=== PATIENT | female | born 1955 | race Caucasian/White ===

== ENCOUNTER 2019-09-11 10:41 | Outpatient (CLI) | payer MEDICARE, SELFPAY ==
[2019-09-11 11:15] LABS: Basophils % 0.8 %; Eosinophils # 0.2 10^3/uL (0.0-0.8); Eosinophils % 5.8 %; Hematocrit 41.8 % (37.0-47.0); Hemoglobin 14.1 g/dL (11.5-15.3); Lymphocytes # 1.3 10^3/uL (0.8-4.8); Lymphocytes % 32.3 %; Mean Corpuscular HGB Conc 33.7 g/dL (30.0-36.0); Mean Corpuscular Hemoglobin 33.6 pg (28.0-34.0); Mean Corpuscular Volume 99.5 fL (81-99); Mean Platelet Volume 9.2 fL (7.4-10.4); Monocytes # 0.5 10^3/uL (0.2-0.9); Monocytes % 12.8 %; Neutrophils # 1.9 10^3/uL (1.8-7.7); Nucleated Red Blood Cells % 0 %; Platelet Count 212 10^3/cmm (130-400)
[2019-09-11 11:31] LABS: Alanine Aminotransferase 27 U/L (0-33); Albumin Level 4.5 g/dL (3.5-5.2); Alkaline Phosphatase 64 IU/L (35-105); Anion Gap 13.4 (5-19); Aspartate Amino Transferase 24 U/L (0-32); Blood Urea Nitrogen 19 mg/dL (8-23); Calcium 10.4 mg/dL (8.5-10.5); Carbon Dioxide 27 mmol/L (22-29); Chloride 102 mmol/L (98-107); Chol HDL Ratio 7.13 mg/dL (0.0-4.40); Cholesterol 285 mg/dL (0-200); Globulin 2.8 g/dL (1.3-4.6); Glomerular Filtration Rate 71.8 mL/min (90-130); Glucose 105 mg/dL (65-115); HDL Cholesterol 40 mg/dL (60-100); LDL Cholesterol Calculated 201 mg/dL (50-129); LDL HDL Ratio 5.03 RATIO (0.00-3.22); Potassium 4.4 mmol/L (3.5-5.1); Sodium 138 mmol/L (136-145); Total Bilirubin 0.4 mg/dL (0.15-1.2); Total Protein 7.3 g/dL (6.6-8.7); Triglycerides 219 mg/dL (0-150)
== END 2019-09-11 10:42 | disposition home or self-care (01) ==
LOC: LAB 10:44
PROVIDERS: Family Provider Internal Medicine; PCP Internal Medicine; Visit Provider Internal Medicine
DX: I10 Essential (primary) hypertension (principal); E03.9 Hypothyroidism, unspecified; Z13.220 Encounter for screening for lipoid disorders
CPT/HCPCS: 36415; 80053; 80061; 85025

== ENCOUNTER 2020-01-05 11:03 | Outpatient (CLI) | payer MEDICARE, SELFPAY ==
[2020-01-05 12:01] LABS: Basophils # 0.1 10^3/uL (0.0-0.1); Basophils % 1.1 %; Eosinophils # 0.2 10^3/uL (0.0-0.8); Eosinophils % 4.1 %; Hematocrit 42.1 % (37.0-47.0); Hemoglobin 14.1 g/dL (11.5-15.3); Lymphocytes # 1.5 10^3/uL (0.8-4.8); Lymphocytes % 32.3 %; Mean Corpuscular HGB Conc 33.5 g/dL (30.0-36.0); Mean Corpuscular Hemoglobin 32.6 pg (28.0-34.0); Mean Corpuscular Volume 97.5 fL (81-99); Mean Platelet Volume 9.8 fL (7.4-10.4); Monocytes # 0.5 10^3/uL (0.2-0.9); Monocytes % 11.3 %; Neutrophils # 2.4 10^3/uL (1.8-7.7); Nucleated Red Blood Cells % 0 %; Platelet Count 212 10^3/cmm (130-400); Red Blood Count 4.32 10^6/uL (4.1-5.3); White Blood Count 4.6 10^3/uL (4.0-10.0)
[2020-01-05 13:15] LABS: Alanine Aminotransferase 24 U/L (0-33); Albumin Level 4.5 g/dL (3.5-5.2); Alkaline Phosphatase 71 IU/L (35-105); Anion Gap 14.4 (5-19); Aspartate Amino Transferase 26 U/L (0-32); Blood Urea Nitrogen 16 mg/dL (8-23); Calcium 10.7 mg/dL (8.5-10.5); Carbon Dioxide 27 mmol/L (22-29); Chloride 103 mmol/L (98-107); Chol HDL Ratio 2.72 mg/dL (0.0-4.40); Cholesterol 136 mg/dL (0-200); Globulin 3.1 g/dL (1.3-4.6); Glomerular Filtration Rate 83.7 mL/min (90-130); Glucose 106 mg/dL (65-115); HDL Cholesterol 50 mg/dL (60-100); LDL Cholesterol Calculated 65 mg/dL (50-129); Osmolality Calculated 287 mOsm/kg (285-295); Potassium 4.4 mmol/L (3.5-5.1); Sodium 140 mmol/L (136-145); Thyroid Stimulating Hormone 1.57 uIU/mL (0.27-4.20); Total Bilirubin 0.5 mg/dL (0.15-1.2); Total Protein 7.6 g/dL (6.6-8.7); Triglycerides 107 mg/dL (0-150)
== END 2020-01-05 11:04 | disposition home or self-care (01) ==
LOC: LAB 11:08
PROVIDERS: PCP Internal Medicine; Visit Provider Internal Medicine
DX: I10 Essential (primary) hypertension (principal); E03.9 Hypothyroidism, unspecified; E78.2 Mixed hyperlipidemia
CPT/HCPCS: 36415; 80053; 80061; 84443; 85025

== ENCOUNTER 2020-05-12 09:45 | Outpatient (CLI) | payer MEDICARE, SELFPAY ==
[2020-05-12 10:43] LABS: Basophils % 0.8 %; Eosinophils # 0.2 10^3/uL (0.0-0.8); Eosinophils % 3.7 %; Hematocrit 41.6 % (37.0-47.0); Hemoglobin 13.3 g/dL (11.5-15.3); Lymphocytes # 1.4 10^3/uL (0.8-4.8); Lymphocytes % 27.7 %; Mean Corpuscular Hemoglobin 31.4 pg (28.0-34.0); Mean Corpuscular Volume 98.3 fL (81-99); Mean Platelet Volume 9.5 fL (7.4-10.4); Monocytes # 0.5 10^3/uL (0.2-0.9); Neutrophils # 2.98 10^3/uL (1.8-7.7); Neutrophils % 58.6 %; Nucleated Red Blood Cells % 0 %; Platelet Count 217 10^3/cmm (130-400); Red Blood Count 4.23 10^6/uL (4.1-5.3); White Blood Count 5.1 10^3/uL (4.0-10.0)
[2020-05-12 11:22] LABS: Alanine Aminotransferase 21 U/L (0-33); Albumin Level 4.6 g/dL (3.5-5.2); Alkaline Phosphatase 70 IU/L (35-105); Anion Gap 13.4 (5-19); Aspartate Amino Transferase 23 U/L (0-32); Blood Urea Nitrogen 19 mg/dL (8-23); Calcium 9.9 mg/dL (8.5-10.5); Carbon Dioxide 28 mmol/L (22-29); Chloride 103 mmol/L (98-107); Chol HDL Ratio 3.02 mg/dL (0.0-4.40); Cholesterol 160 mg/dL (0-200); Globulin 2.6 g/dL (1.3-4.6); Glomerular Filtration Rate 99.7 mL/min (90-130); Glucose 106 mg/dL (65-115); HDL Cholesterol 53 mg/dL (60-100); LDL Cholesterol Calculated 82 mg/dL (50-129); LDL HDL Ratio 1.55 RATIO (0.00-3.22); Osmolality Calculated 293 mOsm/kg (285-295); Potassium 4.4 mmol/L (3.5-5.1); Sodium 140 mmol/L (136-145); Thyroid Stimulating Hormone 1.32 uIU/mL (0.27-4.20); Total Bilirubin 0.4 mg/dL (0.15-1.2); Total Protein 7.2 g/dL (6.6-8.7); Triglycerides 125 mg/dL (0-150)
== END 2020-05-12 09:46 | disposition home or self-care (01) ==
LOC: LAB 09:47
PROVIDERS: PCP Internal Medicine; Visit Provider Internal Medicine
DX: E78.5 Hyperlipidemia, unspecified (principal); E03.9 Hypothyroidism, unspecified; I10 Essential (primary) hypertension
CPT/HCPCS: 36415; 80053; 80061; 84443; 85025

== ENCOUNTER → 2020-06-16 13:03 | Outpatient (BNVA) | payer MEDICARE, SELFPAY | PROVIDERS: PCP Internal Medicine; Visit Provider Internal Medicine | DX: Z20.828 Contact with and (suspected) exposure to other viral communicable diseases (principal); Z01.812 Encounter for preprocedural laboratory examination | CPT/HCPCS: 87635 ==

== ENCOUNTER 2020-06-20 11:08 | Outpatient (CLI) | payer MEDICARE, SELFPAY ==
--- NOTE | 2020-06-20 14:24 | PFTS_ITS ---
Date of Study:06/20/20 Date of Dictation: 06/22/20 MECHANICS: Forced vital capacity (FVC) is 107% Normal Forced expiratory volume in one second (FEV1) is 114% normal FEV1/FVC is 83 nornal FLOW VOLUME LOOP: normal . LUNG VOLUMES:not measured DIFFUSING CAPACITY FOR CARBON MONOXIDE: not measured . INTERPRETATION: The spirometry is normal. MTDD
== END 2020-06-20 11:09 | disposition home or self-care (01) ==
LOC: RT 11:17
PROVIDERS: PCP Internal Medicine; Visit Provider Internal Medicine
DX: J44.9 Chronic obstructive pulmonary disease, unspecified (principal)
CPT/HCPCS: 94010

== ENCOUNTER 2020-07-07 12:08 | Outpatient (CLI) | payer MEDICARE, SELFPAY ==
[2020-07-08 16:43] LABS: Alternaria Alternata (M6) Ige <0.10 kU/L; Alternaria Class 0; Bermuda Class 0; Bermuda Grass (G2) Ige <0.10 kU/L; Cat Dander (E1) Ige <0.10 kU/L; Cat Dander Class 0; Common Ragweed (Short) (W1) Ig <0.10 kU/L; D. Farinae Class 0/1; Dermatophagoides Class 1; Dermatophagoides Farinae (D2) 0.17 kU/L; Dermatophagoides Pteronyssinus 0.39 kU/L; Dog Dander (E5) Ige 0.25 kU/L; Dog Dander Class 0/1; Elm Class 0/1; English Plantain (W9) Ige <0.10 kU/L; English Plantain Class 0; House Dust (Greer) (H1) Ige <0.10 kU/L; House Dust (Hollister- Stier) <0.10 kU/L; House Dust Class 0; Immunoglobulin E 107 kU/L (<OR=114); Immunoglobulin E 109 kU/L (<OR=114); Johnson Grass (G10) Ige <0.10 kU/L; Johnson Grass Cl 0; June Grass Class 0/1; June Grass(Kentucky Blue) (G8) 0.11 kU/L; Lamb'S Quarters Class 0/1; Maple (Box Elder) (T1) Ige <0.10 kU/L; Maple Class 0; Meadow Fescue (G4) Ige <0.10 kU/L; Meadow Fescue Class 0; Mucor Racemosus Class 0; Oak (T7) Ige <0.10 kU/L; Oak Class 0; Orchard Grass (Cocksfoot) (G3) <0.10 kU/L; Penicillium Class 0; Penicillium Notatum (M1) Ige <0.10 kU/L; Perennial Rye Grass (G5) Ige <0.10 kU/L; Perennial Rye Grass Class 0; Ragweeed Class 0; Rough Marsh Elder (W16) Ige 0.13 kU/L; Rough Marsh Elder Class 0/1; Sweet Vernal Class 0; Sweet Vernal Grass (G1) Ige <0.10 kU/L; Timothy Grass (G6) Ige <0.10 kU/L; Timothy Grass Class 0
[2020-07-11 18:47] LABS: Aspergillus Fumigatus, Igg Ab, 36.5 mg/L (<=102)
== END 2020-07-07 12:09 | disposition home or self-care (01) ==
PROVIDERS: PCP Internal Medicine; Visit Provider Internal Medicine Critical Care Medicine
DX: J45.909 Unspecified asthma, uncomplicated (principal); R06.02 Shortness of breath
CPT/HCPCS: 36415; 82785; 86003

== ENCOUNTER 2020-07-15 10:37 | Outpatient (CLI) | payer MEDICARE, SELFPAY ==
--- NOTE | 2020-07-15 10:45 | FL_ITS ---
WS: [id number] [place] barium swallow [id number] REASON FOR EXAM: Patient with lymphoma and elevated creatinine. FLUOROSCOPY TIME: 1.2 minutes FINDINGS: The swallowing of barium and its distal transition through the cervical and thoracic esophagus and in to the stomach was studied with intermittent fluoroscopy and spot films. The swallowing was coordinated. There was no retention or aspiration. There was rapid progression of the barium through the esophagus and into the stomach. The mid esophagus was unremarkable. There was a moderate sized hiatal hernia with mild reflux. There were no significant tertiary contrac tions. There was no stricture or extrinsic mass effect. FL/FL barium swallow [id number] IMPRESSION: Normal swallowing. Hiatal hernia as above.
== END 2020-07-15 10:38 | disposition home or self-care (01) ==
PROVIDERS: PCP Internal Medicine; Visit Provider Internal Medicine Critical Care Medicine
DX: T17.908A Unspecified foreign body in respiratory tract, part unspecified causing other injury, initial encounter (principal); X58.XXXA Exposure to other specified factors, initial encounter; K44.9 Diaphragmatic hernia without obstruction or gangrene
CPT/HCPCS: 74220

== ENCOUNTER 2020-11-22 09:08 | Outpatient (CLI) | payer MEDICARE, SELFPAY ==
[2020-11-22 09:42] LABS: Basophils # 0.1 10^3/uL (0.0-0.1); Basophils % 1.2 %; Eosinophils # 0.4 10^3/uL (0.0-0.8); Eosinophils % 8.6 %; Hematocrit 41.3 % (37.0-47.0); Hemoglobin 13.9 g/dL (11.5-15.3); Lymphocytes # 1.4 10^3/uL (0.8-4.8); Lymphocytes % 28.4 %; Mean Corpuscular HGB Conc 33.7 g/dL (30.0-36.0); Mean Corpuscular Volume 95.2 fL (81-99); Mean Platelet Volume 9.6 fL (7.4-10.4); Monocytes # 0.6 10^3/uL (0.2-0.9); Monocytes % 12.1 %; Neutrophils # 2.43 10^3/uL (1.8-7.7); Neutrophils % 49.7 %; Nucleated Red Blood Cells % 0 %; Platelet Count 200 10^3/cmm (130-400); Red Blood Count 4.34 10^6/uL (4.1-5.3); Red Cell Distribution Width 13.1 % (12.1-15.1); White Blood Count 4.9 10^3/uL (4.0-10.0)
[2020-11-22 10:12] LABS: Alanine Aminotransferase 25 U/L (0-33); Albumin Level 4.5 g/dL (3.5-5.2); Alkaline Phosphatase 68 IU/L (35-105); Blood Urea Nitrogen 19 mg/dL (8-23); Calcium 9.1 mg/dL (8.5-10.5); Carbon Dioxide 26 mmol/L (22-29); Chloride 103 mmol/L (98-107); Chol HDL Ratio 2.87 mg/dL (0.0-4.40); Cholesterol 149 mg/dL (0-200); Globulin 2.4 g/dL (1.3-4.6); Glomerular Filtration Rate 99.7 mL/min (90-130); Glucose 89 mg/dL (65-115); HDL Cholesterol 52 mg/dL (60-100); LDL Cholesterol Calculated 75 mg/dL (50-129); LDL HDL Ratio 1.44 RATIO (0.00-3.22); Osmolality Calculated 286 mOsm/kg (285-295); Sodium 137 mmol/L (136-145); Thyroid Stimulating Hormone 1.76 uIU/mL (0.27-4.20); Total Bilirubin 0.3 mg/dL (0.15-1.2); Total Protein 6.9 g/dL (6.6-8.7); Triglycerides 108 mg/dL (0-150)
[2020-11-22 10:17] LABS: Anion Gap 12.6 (5-19); Aspartate Amino Transferase 27 U/L (0-32); Potassium 4.6 mmol/L (3.5-5.1)
== END 2020-11-22 09:09 | disposition home or self-care (01) ==
LOC: LAB 09:10
PROVIDERS: PCP Internal Medicine; Visit Provider Internal Medicine
DX: I10 Essential (primary) hypertension (principal); E03.9 Hypothyroidism, unspecified; E78.2 Mixed hyperlipidemia
CPT/HCPCS: 36415; 80053; 80061; 84443; 85025

== ENCOUNTER 2020-12-01 11:10 | Outpatient (CLI) | payer MEDICARE, SELFPAY ==
--- NOTE | 2020-12-01 11:15 | MM_ITS ---
WS: [id number] BILATERAL SCREENING DIGITAL MAMMOGRAM WITH CAD HISTORY: SCREENING COMPARISON: 07/03/2019, 06/13/2018 and 09/09/2015 Bilateral CC and MLO views submitted. Computer aided detection analyzed. Breast composition: There are scattered areas of fibroglandular density. No suspicious masses, microc alcifications or architectural distortion. RIGHT breast is smaller than the LEFT which is congenital. There is an area of architectural distortion with adjacent biopsy clip in the upper outer quadrant o f the LEFT breast anteriorly. This has been stable over multiple prior studies. This increased soft t issue and nodularity from 12-3 o'clock which remain stable over multiple prior exams. MM/[place] [id number] IMPRESSION: BI-RADS: 2-Benign FOLLOW UP: 1 Year Follow-up
== END 2020-12-01 11:11 | disposition home or self-care (01) ==
PROVIDERS: PCP Internal Medicine; Visit Provider Internal Medicine
DX: Z12.31 Encounter for screening mammogram for malignant neoplasm of breast (principal)
CPT/HCPCS: 77067

== ENCOUNTER 2021-03-09 11:23 | Outpatient (CLI) | payer MEDICARE, SELFPAY ==
--- NOTE | 2021-03-09 11:32 | XR_ITS ---
WS: [id number] RIGHT ANKLE: 3 VIEW(S) TECHNIQUE: AP, oblique(s) and lateral. HISTORY: PAIN IN RIGHT ANKLE COMPARISON: None available. Normal anatomic alignment with no fracture or dislocation. No joint effusion or widening of the ankle mortise. No significant degenerative changes at the joint spaces. No soft tissue abnormality. XR/XR ankle RT min 3V* [id number] IMPRESSION: Normal RIGHT ankle.
== END 2021-03-09 11:24 | disposition home or self-care (01) ==
LOC: RAD 11:29
PROVIDERS: PCP Internal Medicine; Visit Provider Internal Medicine
DX: M25.571 Pain in right ankle and joints of right foot (principal)
CPT/HCPCS: 73610

== ENCOUNTER 2021-03-31 14:29 | Outpatient (CLI) | payer MEDICARE, SELFPAY ==
--- NOTE | 2021-03-31 14:45 | MR_ITS ---
WS: [id number] MRI BRAIN WITH HIGH-RESOLUTION IMAGING THROUGH THE INTERNAL AUDITORY CANALS WITHOUT AND WITH CONTRAST HISTORY: DIZZINESS AND GIDDINESS COMPARISON: None available. TECHNIQUE: Multiplanar, multisequence imaging is performed through the brain. Additional 3 mm imaging performed in multiple planes through the internal auditory canal. Postcontrast imaging with 16 ml's of MultiHance. No acute intracranial hemorrhage, midline shift, edema or mass effect. No acute infarct or hemorrhage. Very mild chronic microvascular ischemic disease. No prior infarct. Ventricles and extra-axial spaces are normal. No inferior displacement of cerebellar tonsils. Clivus and pituitary gland are normal. Internal and external auditory canals: Unremarkable. Cranial nerves VII and VIII complexes: Unremarkable. No enhancement or mass. Cerebellopontine angles: Normal. Paranasal sinuses: Mucoperiosteal thickening and increased opacification in the RIGHT sphenoid sinus. Mastoid air cells: Normal. Calvarium and scalp: Normal. Visualized sokaogon of [place] and dural venous sinuses demonstrate no abnormality. MR/MR iac's wo/w con* [id number] IMPRESSION: 1. Normal internal auditory canals. 2. Increased opacification RIGHT sphenoid sinus. 3. Very mild chronic microvascular ischemic disease. No enhancing masses.
[2021-03-31] MEDS: gadobenate dimeglumine 20 mL vial IV (15:30)
== END 2021-03-31 14:30 | disposition home or self-care (01) ==
PROVIDERS: PCP Internal Medicine; Visit Provider Specialist
DX: R42 Dizziness and giddiness (principal); I67.82 Cerebral ischemia
CPT/HCPCS: 70553; A9577

== ENCOUNTER 2021-06-14 13:42 | Outpatient (CLI) | payer MEDICARE, SELFPAY ==
--- NOTE | 2021-06-14 13:49 | XR_ITS ---
WS: [id number] Skull series, 4 views, 06/14/2021 Clinical Data: INJURY OF HEAD NECK Comparison: None. Findings: There are no skull fractures. The patient has poor dentition. The sella turcica is normal with no ero luis. No abnormal intracranial calcifications are seen. The internal auditory canals show no expansio n, destruction or erosion. XR/XR skull min 4V* [id number] Impression: Negative skull series.
== END 2021-06-14 13:43 | disposition home or self-care (01) ==
LOC: RAD 13:47
PROVIDERS: PCP Internal Medicine; Visit Provider Nurse Practitioner Family
DX: S09.90XA Unspecified injury of head, initial encounter (principal); X58.XXXA Exposure to other specified factors, initial encounter
CPT/HCPCS: 70260

== ENCOUNTER 2021-06-21 14:52 | Outpatient (CLI) | payer MEDICARE, SELFPAY ==
--- NOTE | 2021-06-21 14:57 | XR_ITS ---
WS: [id number] Exam: XR cervical spine 3V* [id number] Date/Time of Exam: 06/21/2021 2:57 PM Reason For Exam: CERVICALGIA Comparison 04/22/2014. No acute fracture or dislocation. Facet arthropathy at all levels. Degenerative disc narrowing at C5- 6. Spondylosis. The odontoid is intact. Mild levoscoliosis. Paraspinal soft tissues are unremarkable. XR/XR cervical spine 3V* [id number] IMPRESSION: 1. No acute fracture or malalignment. 2. Moderately advanced degenerative changes. Levoscoliosis.
== END 2021-06-21 14:53 | disposition home or self-care (01) ==
PROVIDERS: PCP Internal Medicine; Visit Provider Nurse Practitioner Family
DX: M41.82 Other forms of scoliosis, cervical region (principal)
CPT/HCPCS: 72040

== ENCOUNTER 2021-12-14 12:28 | Outpatient (CLI) | payer MEDICARE, SELFPAY ==
--- NOTE | 2021-12-14 13:05 | MM_ITS ---
WS: [id number] BILATERAL 3D TOMOSYNTHESIS DIGITAL SCREENING MAMMOGRAPHY WITH CAD CLINICAL INFORMATION: SCREENING HISTORY: Screening mammogram. No current complaints. COMPARISON: December 01, 2020 TECHNIQUE: Bilateral CC and MLO views. FINDINGS: Scattered fibroglandular densities bilaterally. RIGHT breast is slightly smaller than the LEFT unchan ged. Stable architectural distortion with biopsy clip in the upper outer quadrant LEFT breast anterio rly. Stable dense nodular breast tissue LEFT breast No suspicious focal mass, asymmetry, calcificatio ns, or architectural distortion. No evidence of malignancy. MM/[place] [id number] IMPRESSION: BI-RADS: 2-Benign FOLLOW UP: 1 Year Follow-up Recommend return to annual screening mammography.
== END 2021-12-14 12:29 | disposition home or self-care (01) ==
LOC: RAD 12:29
PROVIDERS: PCP Internal Medicine; Visit Provider Internal Medicine
DX: Z12.31 Encounter for screening mammogram for malignant neoplasm of breast (principal)
CPT/HCPCS: 77063; 77067

== ENCOUNTER 2021-12-20 11:33 | Outpatient (CLI) | payer MEDICARE, SELFPAY ==
--- NOTE | 2021-12-20 11:53 | XR_ITS ---
WS: [id number] AP views of both knees, 12/20/2021 Clinical Data: t bilateral knee plain Comparison: Left knee, 12/07/2009. Findings: There is medial and lateral joint compartment narrowing of both knees. The left knee shows a lateral condyle spur and a lateral tibial plateau spur. No definite fractures are seen in the AP views only. The soft tissues are normal except for an incidental calcification in the lateral subcutaneous soft t issue adjacent to the condyle of the left knee. XR/[place] [id number] Impression: Bilateral joint compartment narrowing of both knees.
== END 2021-12-20 11:34 | disposition home or self-care (01) ==
LOC: RAD 11:37
PROVIDERS: PCP Internal Medicine; Visit Provider Internal Medicine
DX: M25.561 Pain in right knee (principal); M25.562 Pain in left knee
CPT/HCPCS: 73565

== ENCOUNTER 2022-12-18 10:33 | Outpatient (CLI) | payer OTHER, SELFPAY ==
--- NOTE | 2022-12-18 10:41 | MM_ITS ---
WS: [email or web address] BILATERAL 3D TOMOSYNTHESIS DIGITAL SCREENING MAMMOGRAPHY WITH CAD CLINICAL INFORMATION: SCREENING HISTORY: Screening mammogram. No current complaints. COMPARISON: 2021 TECHNIQUE: Bilateral CC and MLO views. FINDINGS: Scattered fibroglandular densities bilaterally. RIGHT breast is slightly smaller than the LEFT unchanged from previous. Stable architectural distortion with biopsy clip in the upper outer quadrant LEFT breast anteriorly. Stable incidental punctate calcifications. Stable dense nodular breast tissu e LEFT breast unchanged. No suspicious focal mass, asymmetry, calcifications, or architectural distortion. No evidence of malignancy. MM/[place] [id number] IMPRESSION: BI-RADS: 2-Benign FOLLOW UP: 1 Year Follow-up Recommend return to annual screening mammography.
== END 2022-12-18 10:34 | disposition home or self-care (01) ==
PROVIDERS: PCP Family Medicine; Visit Provider Family Medicine
DX: Z12.31 Encounter for screening mammogram for malignant neoplasm of breast (principal)
CPT/HCPCS: 77063; 77067

== ENCOUNTER → 2023-03-04 10:22 | Outpatient (BNVA) | payer OTHER, SELFPAY | PROVIDERS: PCP Family Medicine; Visit Provider Internal Medicine Cardiovascular Disease | DX: R07.9 Chest pain, unspecified (principal) | CPT/HCPCS: 93005 ==

== ENCOUNTER 2023-04-22 10:32 | Outpatient (CLI) | payer MEDICARE, SELFPAY ==
--- NOTE | 2023-04-22 11:00 | USCV_ITS ---
Archana Sinclair Age: 68 Gender: F : 1955 Exam Date: 04/22/2023 10:54 Ordering Phys: Tammi Clifford MD ([email or web address]) Technologist: CT [place] [facility] [place]: hx of mv prolapse BP: / HR: 56 Rhythm: Sinus Technical Quality: Adequate MEASUREMENTS (Male / Female) Normal Values 2D ECHO LV Chamber Size 5.0 cm RV Chamber Size 3.3 cm LVOT Diameter 2.0 cm LV Ejection Fraction MOD 2C 44.5 % LV Ejection Fraction 2C AL 42.0 % LA Diameter 4.4 cm LA Width 4.1 cm LA Height 5.8 cm RA Width 3.4 cm RA Height 4.1 cm Aorta at Sinotubular Diameter 2.8 cm IVC Diameter 1.5 cm M-MODE Aortic Annulus Diameter 3.4 cm LA Ao Ratio MM 1.4 MV E Point Septal Separation 2.4 cm DOPPLER AV Peak Velocity 152.0 cm/s LVOT Peak Velocity 115.0 cm/s AV Area Cont Eq vti 2.5 cm squared AV Area Cont Eq pk 2.4 cm squared MV Area PHT 3.3 cm squared Mitral E to A Ratio 0.8 MV E' Velocity 40.5 cm/s Mitral E to MV E' Ratio 10.3 Mitral E to LV E' Lateral Ratio 10.5 Mitral E to LV E' Septal Ratio 10.2 TR Peak Velocity 254.7 cm/s TR Peak Gradient 25.9 mmHg TV Peak E Velocity 65.0 cm/s Right Atrial Pressure 3.0 mmHg Pulmonary Artery Systolic Pressu 28.9 mmHg PV Peak Velocity 82.0 cm/s FINDINGS Left Ventricle Normal left ventricular size, systolic function and increased wall thickness, with no regional wall motion abnormalities. Left ventricular ejection fraction is estimated at 65 %. Grade II diastolic dysfunction, moderately elevated filling pressures. Right Ventricle Normal right ventricular size and systolic function. Right ventricular systolic pressure 31 mmHg. Right Atrium Normal right atrial size. Left Atrium Mildly increased left atrial size. Mitral Valve Mildly thickened mitral valve. No mitral valve stenosis. Moderate mitral valve regurgitation. Aortic Valve Structurally normal trileaflet aortic valve. No aortic valve stenosis. Mild to moderate aortic valve regurgitation. Tricuspid Valve Structurally normal tricuspid valve. No tricuspid valve stenosis. Mild tricuspid valve regurgitation. Pulmonic Valve Structurally normal pulmonic valve. Pericardium No pericardial effusion. Aorta Normal size aortic root and proximal ascending aorta. IVC Normal IVC dimension with >50% respiratory change of the inferior vena cava. CONCLUSIONS 1. Normal left ventricular size, systolic function and increased wall thickness, with no regional wall motion abnormalities. Left ventricular ejection fraction is estimated at 65 %. Grade II diastolic dysfunction, moderately elevated filling pressures. 2. Mild to moderate aortic valve regurgitation. 3. Moderate mitral valve regurgitation. 4. No prior similar studies to compare. Tammi Clifford MD (Electronically Signed) Final Date: 29 April 2023 15:11 S
== END 2023-04-22 10:33 | disposition home or self-care (01) ==
LOC: RAD 10:36
PROVIDERS: PCP Family Medicine; Visit Provider Internal Medicine Cardiovascular Disease
DX: R06.02 Shortness of breath (principal); Z86.79 Personal history of other diseases of the circulatory system
CPT/HCPCS: 93306

== ENCOUNTER → 2023-05-16 10:37 | Outpatient (BNVA) | payer MEDICARE, SELFPAY | PROVIDERS: PCP Family Medicine; Visit Provider Podiatrist Foot & Ankle Surgery | DX: L60.0 Ingrowing nail (principal); L60.3 Nail dystrophy | CPT/HCPCS: 11750 ==

== ENCOUNTER → 2023-05-30 10:23 | Outpatient (BNVA) | payer MEDICARE, SELFPAY | PROVIDERS: PCP Family Medicine; Visit Provider Podiatrist Foot & Ankle Surgery | DX: Z98.890 Other specified postprocedural states (principal) | CPT/HCPCS: 99213 ==

== ENCOUNTER 2023-07-02 16:25 | Outpatient (CLI) | payer MEDICARE, SELFPAY ==
--- NOTE | 2023-07-02 16:35 | XRR_ITS ---
PROCEDURE INFORMATION: Exam: XR Chest Exam date and time: 07/02/2023 4:41 PM Age: 68 years old Clinical indication: Wheezing; Additional info: Chest congestion TECHNIQUE: Imaging protocol: Radiologic exam of the chest. Views: 2 views. COMPARISON: CR XR chest 2V* [id number] 11/26/2018 2:41 PM FINDINGS: Lungs: Left lower lung linear atelectasis versus scarring. No consolidation. Pleural spaces: Unremarkable. No pleural effusion. No pneumothorax. Heart/Mediastinum: Unremarkable. No cardiomegaly. Vasculature: Aortic atherosclerotic calcification. Bones/joints: Degenerative changes along the spine and shoulders. XR/XR chest 2V* [id number] IMPRESSION: No acute findings.
== END 2023-07-02 16:26 | disposition home or self-care (01) ==
LOC: RAD 16:31
PROVIDERS: PCP Family Medicine; Visit Provider Nurse Practitioner Family
DX: R09.89 Other specified symptoms and signs involving the circulatory and respiratory systems (principal)
CPT/HCPCS: 71046

== ENCOUNTER → 2023-07-16 13:16 | Outpatient (BNVA) | payer MEDICARE, SELFPAY | PROVIDERS: PCP Family Medicine; Referring Provider Family Medicine; Visit Provider Dermatology | DX: L57.0 Actinic keratosis (principal); L73.8 Other specified follicular disorders; D22.39 Melanocytic nevi of other parts of face; L30.0 Nummular dermatitis | CPT/HCPCS: 17000; 99204 ==

== ENCOUNTER → 2023-08-29 14:28 | Outpatient (BNVA) | payer MEDICARE, SELFPAY | PROVIDERS: PCP Family Medicine; Visit Provider Nurse Practitioner Family | DX: I10 Essential (primary) hypertension (principal) | CPT/HCPCS: 99213 ==

== ENCOUNTER 2023-10-18 11:55 | Outpatient (CLI) | payer MEDICARE, SELFPAY ==
--- NOTE | 2023-10-18 12:01 | XRR_ITS ---
PROCEDURE INFORMATION: Exam: XR Left Shoulder Exam date and time: 10/18/2023 12:09 PM Age: 68 years old Clinical indication: Pain; Mass or lump; Left; Patient HX: Lump on shoulder x 3 months; Additional info: Pain in L shoulder TECHNIQUE: Imaging protocol: Radiologic exam of the left shoulder. Views: 2 or more views. COMPARISON: CR XR chest 2V* [id number] 07/02/2023 4:41 PM FINDINGS: Bones/joints: Mild arthritic change involves the AC joint and there is prominent soft tissue swelling superior to the joint. No fracture noted. Prominent arthritic spurring involves the glenohumeral joint. Soft tissues: Normal. XR/XR shoulder LT min 2V* [id number] IMPRESSION: Prominent soft tissue swelling superior to the AC joint. This may be a joint effusion related to arthritic changes
== END 2023-10-18 11:56 | disposition home or self-care (01) ==
LOC: RAD 11:59
PROVIDERS: PCP Family Medicine; Visit Provider Family Medicine
DX: M25.512 Pain in left shoulder (principal); M79.89 Other specified soft tissue disorders
CPT/HCPCS: 73030

== ENCOUNTER 2023-10-25 13:24 | Outpatient (CLI) | payer MEDICARE, SELFPAY ==
--- NOTE | 2023-10-25 13:30 | US_ITS ---
WS: [email or web address] INDICATION: Pain LEFT shoulder TECHNIQUE: Ultrasound LEFT shoulder of concern FINDINGS: Ultrasound LEFT shoulder area of concern near the AC joint. There is a well-circumscribed f luid collection or cyst measuring approximately 3.1 x 1.7 cm in the area of concern. This is near the AC joint and located in the subcutaneous soft tissues. Fluid collection or cyst has a simple appeara nce. This could be further evaluated with MRI for better anatomic detail and for assessment in regard s to communication with the glenohumeral joint or AC joint. IMPRESSION: See above
== END 2023-10-25 13:25 | disposition home or self-care (01) ==
LOC: RAD 13:24
PROVIDERS: PCP Family Medicine; Visit Provider Family Medicine
DX: M25.812 Other specified joint disorders, left shoulder (principal)
CPT/HCPCS: 76882

== ENCOUNTER → 2023-12-23 13:13 | Outpatient (BNVA) | payer MEDICARE, SELFPAY | PROVIDERS: PCP Family Medicine; Visit Provider Specialist | DX: M25.512 Pain in left shoulder (principal); M25.812 Other specified joint disorders, left shoulder | CPT/HCPCS: 99204 ==

== ENCOUNTER → 2024-01-22 12:40 | Outpatient (CLI) | payer MEDICARE, SELFPAY ==
--- NOTE | 2024-01-22 13:00 | MR_ITS ---
WS: [id number] MRI LEFT SHOULDER NONCONTRAST TECHNIQUE: Sagittal T2, coronal T1, T2 and proton density imaging. Axial gradient PDE imaging. CLINICAL INFORMATION: Mass COMPARISON: None. FINDINGS: Advanced arthritis of the AC joint with subacromial and subdeltoid fluid. Mild downsloping acromion w ith impingement on the distal supraspinatus. Lobulated synovial cysts along the surface of the AC dalton nt with synovial thickening. Lobulated synovial cysts measuring approximately 1.9 x 1.0 cm. Additiona l similar-appearing lobulated synovial cysts along the undersurface and dorsal surface of the joint. Fluid within the AC joint. This is best appreciated on the sagittal imaging. Advanced arthritis of the glenohumeral articulation with hypertrophic spurring along the humeral neck . Chronic thinning and fraying of the glenoid labrum. Small amount of subacromial and subdeltoid flui d. Subchondral cystic change humeral head and glenoid. Chronic thinning of the distal supraspinatus with tendinopathy. Infraspinatus appears intact. Teres minor appears intact. Subscapularis appears in tact. Biceps tendon intact within the bicipital groove. T2 signal normality involving the intra-artic ular biceps tendon compatible with tendinopathy. Intra-articular biceps tendon appears intact. MR/MR shoulder LT wo con* [id number] IMPRESSION: 1. Advanced arthritis of the AC joint with fluid and edema. Lobulated synovial cysts along the surface of the joint, undersurface, and dorsal joint. 2. Mild downsloping the acromion with impingement distal supraspinatus with te ndinopathy and chronic thinning. 3. Rotator cuff is otherwise intact. 4. Biceps tendon appears intact within the bicipital groove. 5. Tendinopathy proximal intra-articular biceps tendon which appears intact. 6. Advanced degenerative narrowing of the glenohumeral articulation with promi nent hypertrophic spurring along the humeral neck.
== END | disposition home or self-care (01) ==
LOC: RAD 12:39
PROVIDERS: PCP Family Medicine; Visit Provider Specialist
DX: M19.012 Primary osteoarthritis, left shoulder (principal); M71.312 Other bursal cyst, left shoulder; M75.92 Shoulder lesion, unspecified, left shoulder
CPT/HCPCS: 73221

== ENCOUNTER 2024-02-11 12:51 | Outpatient (CLI) | payer MEDICARE, SELFPAY ==
--- NOTE | 2024-02-11 13:01 | MM_ITS ---
WS: [id number] Bilateral screening 3D tomosynthesis digital mammogram, 02/11/2024 Clinical Data: SCREENING Comparison: 12/18/2022, 12/14/2021, 12/01/2020, 07/03/2019, 06/13/2018, 09/27/2016, 09/09/2015, 08/06/2014, , 09/19/2011, 09/04/2011, 07/05/2010, 06/17/2008, 05/01/2007, 03/11/2006. Findings: The breast parenchymal pattern shows fibroglandular tissue. There is a large amount of tissue in the upper outer quadrant left breast unchanged. There is a biopsy clip in the middle of this tissue. No s piculated masses or clustered calcifications are seen. There are no secondary signs of carcinoma. MM/[place] [id number] Impression: 1. Negative bilateral mammogram unchanged. 2. Recommend annual screening mammograms. BIRADS: 2-Benign FOLLOW UP: 1 Year Follow-up The CAD process checker was used.
== END 2024-02-11 12:52 | disposition home or self-care (01) ==
LOC: RAD 12:53
PROVIDERS: PCP Family Medicine; Visit Provider Family Medicine
DX: Z12.31 Encounter for screening mammogram for malignant neoplasm of breast (principal); R92.1 Mammographic calcification found on diagnostic imaging of breast; R92.323 Mammographic fibroglandular density, bilateral breasts
CPT/HCPCS: 77063; 77067

== ENCOUNTER → 2024-02-17 15:24 | Outpatient (BNVA) | payer MEDICARE, SELFPAY | PROVIDERS: PCP Family Medicine; Visit Provider Specialist | DX: M19.012 Primary osteoarthritis, left shoulder (principal) | CPT/HCPCS: 20610; 99214; J1100; J2795; J3301 ==

== ENCOUNTER → 2024-02-25 15:58 | Outpatient (BNVA) | payer MEDICARE, SELFPAY | PROVIDERS: PCP Family Medicine; Visit Provider Internal Medicine Cardiovascular Disease | DX: Z79.01 Long term (current) use of anticoagulants (principal); R53.83 Other fatigue; N18.9 Chronic kidney disease, unspecified; R06.02 Shortness of breath | CPT/HCPCS: 36415; 80048; 84443; 85025; 93005; 99214 ==

== ENCOUNTER 2024-03-11 07:26 | Outpatient (CLI) | payer MEDICARE, SELFPAY ==
--- NOTE | 2024-03-11 07:49 | ECG_ITS ---
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 Interpretive Statements NAME OF STUDY: LEXISCAN SESTAMIBI STRESS TEST INDICATION: [FATIGUE/MVR, ] Procedure: At the baseline, the blood pressure was 157/79 mmHg with a heart rate of 64 bpm. The electrocardiogram showed normal sinus rhythm, normal axis with normal ST and T's. The Lexiscan was infused over a period of 20 seconds. A total of 0.4 mg of Lexiscan was infused. The stress phase was continued for a total of 5 minutes. Heart rate was at the end of stress phase was 80 bpm and a blood pressure of 143/73 mmHg. The EKG at the peak infusion revealed normal sinus rhythm with no significant ST-T wave changes. Sestamibi was injected 20 seconds after the Lexiscan infusion. Blood pressure at the end of recovery phase was 130/74 mmHg with a heart rate of 76 bpm. Conclusion: 1. Normal EKG response to Lexiscan infusion 2. No Lexiscan induced chest pain or cardiac arrhythmia. 3. Normal blood pressure and heart rate response. 4. Sestamibi/sestamibi perfusion scan pending; see separate report. Electronically Signed On 03-15-2024 21:19:11 CDT by Edwin Zazueta M.D. [id number]
--- NOTE | 2024-03-11 07:50 | NMCV_ITS ---
NM cristina perf SPECT r/s* [id number] Archana Sinclair Age: 68 Gender: F : 1955 Exam Date: 03/11/2024 07:50 Ordering Phys: Ben Groves MD ([email or web address]) Technologist: MACIE Ramos Exam Location: [facility] Indications: CP, SOB, fatigue STRESS TEST Please see separate stress test report in [facility] for full findings IMAGE PROTOCOL Rest/Stress 1 Lexiscan Day Radiopharmaceutical Dose (mCi) Administration Site Administered by Rest: Tc-99m 10.9 IV MACIE Ramos Sestamibi Stress:Tc-99m 32.5 IV MACIE Ramos Sestamibi Rest: 11-Mar-2024 60 Discovery 630 Stress: 11-Mar-2024 30 Discovery 630 0.4mg Lexiscan. Supine position only as patient was unable to lay prone. SPECT RESULTS Technical Quality: Good Raw Data Analysis: Normal Image Corrections: No attenuation or motion correction applied Summed Stress Score: 0 Summed Rest Score: 0 Summed Difference Score: 0 PERFUSION FINDINGS SPECT images demonstrate homogeneous tracer distribution throughout the myocardium. FUNCTIONAL RESULTS (calculated via Gated SPECT) Stress Image LV EF (%): 74 Stress EDV (mL):89 TID: 0.94 Stress ESV (mL):23 FUNCTIONAL FINDINGS: There is normal left ventricular systolic function. IMPRESSIONS 1. Normal myocardial perfusion imaging with no evidence of ischemia 2. LV systolic function is normal Edwin Zazueta MD (Electronically Signed) Final Date: 12 March 2024 11:33 S
[2024-03-11 07:51] VITALS: BMI 24.9
[2024-03-11] MEDS: regadenoson 0.4 Mg/5 ml Syringe IVP (09:09)
[2024-03-11 09:26] VITALS: BP 144/74; PULSE 76
== END 2024-03-11 07:27 | disposition home or self-care (01) ==
PROVIDERS: PCP Family Medicine; Visit Provider Internal Medicine Cardiovascular Disease
DX: R07.9 Chest pain, unspecified (principal); R06.02 Shortness of breath
CPT/HCPCS: 36415; 78452; 93017; 96374; A9500; J2785

== ENCOUNTER → 2024-03-25 09:22 | Outpatient (BNVA) | payer MEDICARE, SELFPAY | PROVIDERS: PCP Family Medicine; Visit Provider Nurse Practitioner Family | DX: I51.89 Other ill-defined heart diseases (principal); I10 Essential (primary) hypertension | CPT/HCPCS: 99214 ==

== ENCOUNTER 2024-06-02 12:08 | Outpatient (CLI) | payer MEDICARE, SELFPAY ==
--- NOTE | 2024-06-02 12:17 | XRR_ITS ---
PROCEDURE INFORMATION: Exam: XR Chest Exam date and time: 06/02/2024 12:33 PM Age: 69 years old Clinical indication: Cough and wheezing; Patient HX: Wheezing and coughing 6 mo, HX of copd and asthma TECHNIQUE: Imaging protocol: Radiologic exam of the chest. Views: 2 views. COMPARISON: CR XR chest 2V* [id number] 07/02/2023 4:41 PM FINDINGS: Lungs: Left basilar linear scarring. No consolidation. Pleural spaces: Unremarkable. No pleural effusion. No pneumothorax. Heart/Mediastinum: Unremarkable. No cardiomegaly. Bones/joints: Degenerative changes along the spine and shoulders. XR/XR chest 2V* [id number] IMPRESSION: Stable exam without acute findings.
== END 2024-06-02 12:09 | disposition home or self-care (01) ==
LOC: RAD 12:10
PROVIDERS: PCP Family Medicine; Visit Provider Family Medicine
DX: R05.3 Chronic cough (principal)
CPT/HCPCS: 71046

== ENCOUNTER → 2024-06-12 10:53 | Outpatient (BNVA) | payer MEDICARE, SELFPAY | PROVIDERS: PCP Family Medicine; Visit Provider Specialist | DX: M19.012 Primary osteoarthritis, left shoulder (principal); Z71.89 Other specified counseling | CPT/HCPCS: 20610; J1100; J2795; J3301 ==

== ENCOUNTER → 2024-08-27 10:41 | Outpatient (BNVA) | payer MEDICARE, SELFPAY | PROVIDERS: PCP Family Medicine; Visit Provider Nurse Practitioner Family | DX: R53.82 Chronic fatigue, unspecified (principal); I11.9 Hypertensive heart disease without heart failure | CPT/HCPCS: 99213 ==

== ENCOUNTER → 2024-09-18 10:03 | Outpatient (BNVA) | payer MEDICARE, SELFPAY | PROVIDERS: PCP Family Medicine; Visit Provider Specialist | DX: M19.012 Primary osteoarthritis, left shoulder (principal); Z71.89 Other specified counseling | CPT/HCPCS: 20610; J1100; J2795; J3301 ==

== ENCOUNTER → 2024-11-09 12:45 | Outpatient (BNVA) | payer MEDICARE, SELFPAY | PROVIDERS: PCP Family Medicine; Visit Provider Orthopaedic Surgery | DX: M79.644 Pain in right finger(s) (principal) | CPT/HCPCS: 99204 ==

== ENCOUNTER → 2024-11-11 08:47 | Outpatient (BNVA) | payer MEDICARE, SELFPAY | PROVIDERS: PCP Family Medicine; Visit Provider Specialist | DX: M12.811 Other specific arthropathies, not elsewhere classified, right shoulder (principal) | CPT/HCPCS: 20610; 73030; 99214; J1100; J2795; J3301; J9999 ==

== ENCOUNTER 2024-11-12 11:19 | Outpatient (CLI) | payer MEDICARE, SELFPAY ==
[2024-11-12 12:14] LABS: Basophils % 0.1 %; Hematocrit 39.8 % (36-47); Lymphocytes % 10.4 %; Mean Corpuscular HGB Conc 33.4 g/dL (30-55); Mean Corpuscular Volume 95.7 fl (85-98); Mean Platelet Volume 8.9 fL (7.4-10.4); Monocytes # 0.9 10^3/uL (0.2-0.9); Monocytes % 9.8 %; Neutrophils % 79.3 %; Nucleated Red Blood Cells % 0 %; Platelet Count 223 10^3/cmm (157-399); Red Blood Count 4.16 10^6/uL (3.85-5.65); Red Cell Distribution Width 13.1 % (12.1-15.1); White Blood Count 9.59 10^3/uL (3.29-11.43)
[2024-11-12 12:23] LABS: Bacteria Urine None Seen /hpf; Hyaline Casts Urine 2.46 /lpf; Squamous Epithelial Cell Urine 0-5 /hpf (0-5); WBC Urine 0-5 /hpf (0-5)
[2024-11-12 12:26] LABS: Add Urine Culture? Yes; Add Urine Microscopic? YES; Bilirubin Urine Neg (Negative); Blood Urine 2+ (Negative); Glucose Urine UA Norm (Normal); Ketones Urine Negative (Negative); Leukocyte Esterase Urine 1+ (Negative); Nitrate Urine Negative (Negative); Protein Urine Neg (Negative); Urine Appearance Clear (CLEAR); Urine Color Yellow (Yellow); Urobilinogen Urine Norm (Negative); pH Urine 6 (5-7)
[2024-11-12 12:32] LABS: Alanine Aminotransferase 19 U/L (0-33); Albumin Level 4.6 g/dL (3.5-5.2); Alkaline Phosphatase 73 U/L (35-105); Anion Gap 15.6 (5-19); Aspartate Amino Transferase 26 U/L (0-32); Blood Urea Nitrogen 25 mg/dL (8-23); Calcium 9.9 mg/dL (8.5-10.5); Carbon Dioxide 24 mmol/L (22-29); Chloride 101 mmol/L (98-107); Globulin 2.8 g/dL (1.3-4.6); Glucose 95 mg/dL (65-115); Osmolality Calculated 286 mOsm/kg (285-295); Potassium 4.6 mmol/L (3.5-5.1); Sodium 136 mmol/L (136-145); Total Bilirubin 0.5 mg/dL (0.15-1.2); Total Protein 7.4 g/dL (6.6-8.7)
== END 2024-11-12 11:20 | disposition home or self-care (01) ==
PROVIDERS: PCP Family Medicine; Visit Provider Orthopaedic Surgery
DX: Z01.818 Encounter for other preprocedural examination (principal)
CPT/HCPCS: 36415; 80053; 81001; 85025; 87086

== ENCOUNTER → 2024-12-02 09:34 | Outpatient (BNVA) | payer MEDICARE, SELFPAY | PROVIDERS: PCP Family Medicine; Visit Provider Family Medicine | DX: Z01.818 Encounter for other preprocedural examination (principal) | CPT/HCPCS: 93005 ==

== ENCOUNTER 2024-12-08 11:11 | Day surgery (SDC) | payer MEDICARE, SELFPAY ==
[2024-12-08] VITALS (9 sets, daily range): BP systolic 136–164; BP diastolic 73–84; PULSE 55–63; RESP 16–20; TEMP 36.1–36.6; O2SAT 95–99
[2024-12-08] MEDS: sodium chloride 0.9% 1,000 ML 30 ML IV (11:39)
--- NOTE | 2024-12-08 11:47 | ANES.PREANE2 ---
Pre-Anesthetic Assessment Height/Weight: Height 5 ft 3 in Weight 145 lb Temp Pulse Resp BP Pulse Ox O2 Del Method 97 F L 63 16 164/84 98 Room Air 12/08/24 11:30 12/08/24 11:30 12/08/24 11:30 12/08/24 11:30 12/08/24 11:30 12/08/24 11:30 Preop Diagnosis: Mass on thumb Operation Date: 12/08/24 13:00 Proposed Procedures p LEFT thumb mucoid cyst excision(Left) - Guy Mao MD Was Beta Aaron taken within 24 hours: Yes Was Clonidine taken within 24 hours: N/A Last intake: Intake Last Liquid Date 12/08/24 Last Liquid Time 06:00 Last Solid Date 12/07/24 Last Solid Time 22:00 Social No alcohol and No tobacco Exam alert, oriented x 3, clear to auscultation bilaterally and regular rate & rhythm Airway Submandibular: within normal limits Cervical ROM: within normal limits Mallampati: Class II Comments: Comments: Note upper teeth, poor dentition on bottom. Denies any loose teeth Anesthetic Plan ASA status: 3 Anesthesia: MAC Other: No prior issues with anesthesia NPO since yesterday evening History of asthma, controlled with inhalers COPD Hypertension on metoprolol Labs reviewed and acceptable for procedure Negative stress test 2023 EKG showing sinus rhythm Patient does not want to go all the way to sleep, will attempt MAC anesthesia with local via surgeon Medications/Allergies Home Medications ?Medication ?Instructions ?Recorded ?Confirmed ?Last Taken ?Type magnesium 250 mg PO DAILY 08/21/19 12/08/24 12/07/24 History acetaminophen 500 mg tablet 500 mg PO Q6H PRN Pain, Mild 07/07/20 12/08/24 12/07/24 History (Tylenol Extra Strength) sodium chloride 0.65 % nasal spray 1 spray intranasal BID PRN 07/07/20 12/08/24 12/07/24 History aerosol (Saline Mist) ALLERGIES rosuvastatin 10 mg tablet 10 mg PO DAILY #90 tabs 04/16/22 12/08/24 12/07/24 Rx metoprolol tartrate 50 mg tablet 50 mg PO BID #60 tabs 05/02/22 12/08/24 12/08/24 Rx gabapentin 100 mg capsule 100 mg PO TID #90 caps 05/28/22 12/08/24 12/07/24 Rx amitriptyline 25 mg tablet 25 mg PO QDAY #90 tabs 06/19/22 12/08/24 12/06/24 Rx meloxicam 15 mg tablet 15 mg PO DAILY #90 tabs 06/19/22 12/08/24 11/09/24 Rx montelukast 10 mg tablet 10 mg PO DAILY 03/04/23 12/08/24 12/07/24 History budesonide-formoterol HFA 160 1 puff inhalation BID 12/02/24 12/08/24 12/08/24 History mcg-4.5 mcg/actuation aerosol inhaler cimetidine 200 mg tablet 200 mg PO BID 12/02/24 12/08/24 12/07/24 History fluticasone propionate 50 2 spray intranasal BID 12/02/24 12/08/24 12/07/24 History mcg/actuation nasal spray,suspension loratadine 10 mg tablet 10 mg PO DAILY 12/02/24 12/08/24 12/07/24 History solifenacin 5 mg tablet 5 mg PO QDAY 12/02/24 12/08/24 12/07/24 History tizanidine 2 mg tablet 2 mg PO .qhs PRN Muscle Spasm 12/02/24 12/08/24 12/06/24 History Allergies Allergy/AdvReac Type Severity Reaction Status Date / Time Penicillins Allergy Severe ALGY-Rash Verified 12/07/24 12:19 albuterol Allergy chest pain Verified 12/07/24 12:19 codeine AdvReac Severe ADR-Anxiety Verified 12/07/24 12:19 hydrocodone AdvReac Severe ADR-Vomitin Verified 12/07/24 12:19 g Current Medications Generic Name Dose Route Start Last Admin Trade Name Freq PRN Reason Stop Dose Admin Sodium Chloride 1,000 mls @ 30 mls/hr 12/08/24 11:30 12/08/24 11:39 Sodium Chloride 0.9% IV 12/09/24 11:29 30 mls/hr .Q24H SANDY Administration PFSH Anesthesia Medical History Diastolic dysfunction Chronic back pain Scoliosis Hypertension Chronic obstructive airway disease with asthma Hypothyroidism Surgical History History of total vaginal hysterectomy (10/31/17) TVH with BSO, Uterosacral ligament suspension, Anterior vaginal repair, Solyx single incision sling. Performed by Dr. Baez at [facility] [place], [place] History of oral surgery Performed [place], [place] Family History Father Hypertension Myocardial infarction Mother Hypertension Diabetes Grandmother Hypertension Colon cancer paternal CAD (coronary artery disease) Maternal Grandfather Hypertension Social History Smoking and tobacco/nicotine status: never used tobacco/nicotine Second hand smoke exposure: Yes Alcohol intake: never Substance/Drug Use: never Lives independently: Yes Household members: spouse Marital status: Current occupational status: retired Do you think of yourself as: Straight/Heterosexual Current gender identity: Female Data Anesthesia Cardiac Studies: Echocardiogram 04/22/23 Sestamibi Stress Test (Cardiology) 03/11/24
--- NOTE | 2024-12-08 11:51 | W.PM.OPSUD ---
Surgery/Procedure H&P Update DATE OF PROCEDURE: December 08, 2024 DATE H&P PERFORMED: 12/02/24 H&P UPDATE INFORMATION: I have reviewed H&P completed within last 30 days, I have examined patient prior to procedure, No changes to prior documentation and Risks and benefits of the procedure reviewed PREOP DIAGNOSIS: Mucoid cyst left thumb PLANNED PROCEDURE: Operation Date: 12/08/24 13:00 Proposed Procedures p LEFT thumb mucoid cyst excision(Left) - Guy Mao MD
[2024-12-08] MEDS: clindamycin 600 MG/50 ML PREMIX 100 MG IV (12:47)
[2024-12-08] MEDS: BUPivacaine 0.5% INJ 10 mL INJECTION (13:03)
--- NOTE | 2024-12-08 13:13 | P.OP_ITS ---
Operative Report Date of procedure: December 08, 2024 Surgeon: Guy Mao MD Procedure: Preop diagnosis: Mucoid cyst dorsum of distal left thumb Postop diagnosis: Same Procedure: Excisional biopsy of mucoid cyst left thumb Surgeon: Guy Mao MD Anesthesia: IV sedation with local anesthetic EBL: 5 cc Indications: Archana is a 69-year-old white female who presented to the orthopedic clinic for a persistent cystic Arising at the base of the for nailbed of the left thumb. It is tender and sore. She has tried to rose mary this before but it comes back. Upon orthopedic evaluation it appears to be a mucoid cyst possibly coming from the DIP joint. Therefore at this time she was offered excisional biopsy of this. All risk benefits treatment alternatives were discussed and she was agreeable to this at this time. She is understands that this could still come back after having exercise. Procedure: After obtaining her consent patient taken the operative room and while still on her [facility] had IV sedation administered. Arm table was placed off the edge of this rloma mar and left hand and arm were prepped and draped usual fashion. Subsequently after surgical timeout digital block was applied with half percent Marcaine plain totaling 10 cc. Once good anesthetic effect was achieved longitudinal incision made on the dorsal aspect of the thumb from approximately the DIP skin folds distally to the base of the cyst. Then sharply dissected around the circumference of this. Contents were of thick synovial fluid. This was removed en bloc sharply. It was sent for pathological evaluation.. The tissue was then debrided all the way back to the proximal portion of the distal phalanx on the dorsal aspect with a rongeur's. Once this was achieved. Wound was washed sterile irrigation. Wound was closed with simple 3-0 Prolene interrupted sutures. Wounds were cleaned and dried dressed with Xeroform gauze, sterile gauze dressing, Kerlix wrap, and an Jose wrap for compression. Patient awakened transferred to cover room stable condition
--- NOTE | 2024-12-08 13:50 | ANE.PACU2 ---
Inpatient post-anesthesia follow up: Airway intact: Yes Vital signs: Temperature 97.9 F Pulse Rate 62 Respiratory Rate 16 Blood Pressure 162/81 Pulse Oximetry 98 Oxygen Delivery Me thod Room Air Oxygen Flow Rate Fraction of Inspir ed Oxygen Hydration adequate: Yes Nausea and vomiting: No Pain level: 1 Mental status: Baseline
== END 2024-12-08 13:43 | disposition home or self-care (01) ==
PROVIDERS: PCP Family Medicine; Visit Provider Orthopaedic Surgery
PROC: (CPT 26160; principal; 2024-12-08 13:00)
DX: M71.342 Other bursal cyst, left hand (principal); J44.9 Chronic obstructive pulmonary disease, unspecified; I10 Essential (primary) hypertension; E03.9 Hypothyroidism, unspecified; E78.5 Hyperlipidemia, unspecified
CPT/HCPCS: 26160; 88304; J2704; J3010; J3490; J7030; J9999

== ENCOUNTER → 2024-12-29 09:59 | Outpatient (BNVA) | payer MEDICARE, SELFPAY | PROVIDERS: PCP Family Medicine; Visit Provider Orthopaedic Surgery | DX: Z98.890 Other specified postprocedural states (principal) | CPT/HCPCS: 99024 ==

== ENCOUNTER → 2025-01-15 10:42 | Outpatient (BNVA) | payer MEDICARE, SELFPAY | PROVIDERS: PCP Family Medicine; Visit Provider Specialist | DX: M19.012 Primary osteoarthritis, left shoulder (principal) | CPT/HCPCS: 20610; J1100; J2795; J3301; J9999 ==

== ENCOUNTER 2025-01-22 09:31 | Outpatient (CLI) | payer MEDICARE, SELFPAY ==
--- NOTE | 2025-01-22 09:39 | XR_ITS ---
WS: [id number] Cervical spine, 7 views including both obliques and lateral views in neutral position, 01/22/2025 Clinical Data: CHRONIC NECK PAIN X MORE THAN 3 MONTHS Comparison: Cervical spine, 06/21/2021 Findings: No compression fractures are seen. There is degenerative disc narrowing at C5-C6 and C6-C7 with osteophytes. The oblique images show foraminal narrowing at C6-C7 bilaterally. There is facet joint arthritis at all levels. There is no prevertebral soft tissue swelling. The odontoid is unremarkable. The soft tissues of the neck and the lung apices are normal. XR/XR cervical spine 4-5V [id number] Impression: 1. Degenerative disc narrowing at C5-C6 and C6/C7 with osteophytes. 2. Foraminal narrowing at C6-C7 bilaterally with facet joint arthritis at all levels.
== END 2025-01-22 09:32 | disposition home or self-care (01) ==
LOC: RAD 09:34
PROVIDERS: PCP Family Medicine; Visit Provider Family Medicine
DX: M48.02 Spinal stenosis, cervical region (principal); M25.78 Osteophyte, vertebrae; M47.812 Spondylosis without myelopathy or radiculopathy, cervical region
CPT/HCPCS: 72050

== ENCOUNTER 2025-02-11 12:57 | Outpatient (CLI) | payer MEDICARE, SELFPAY ==
--- NOTE | 2025-02-11 13:03 | MM_ITS ---
WS: [id number] BILATERAL 3D TOMOSYNTHESIS DIGITAL SCREENING MAMMOGRAPHY WITH CAD CLINICAL INFORMATION: SCREENING HISTORY: Screening mammogram. No current complaints. COMPARISON: 2023 TECHNIQUE: Bilateral CC and MLO views. FINDINGS: Scattered fibroglandular densities bilaterally. No suspicious focal mass, asymmetry, calcifications, or architectural distortion. No evidence of malignancy. Stable biopsy clip central LEFT breast. Stable dense breast tissue upper outer LEFT breast with architectural distortion. MM/MM scr tomosynthesis [id number] IMPRESSION: DENSITY: There are scattered areas of fibroglandular density. BI-RADS: 2 - Benign. FOLLOW UP: 1 Year Follow-up Recommend return to annual screening mammography.
== END 2025-02-11 12:58 | disposition home or self-care (01) ==
LOC: RAD 12:57
PROVIDERS: PCP Family Medicine; Visit Provider Family Medicine
DX: Z12.31 Encounter for screening mammogram for malignant neoplasm of breast (principal); R92.323 Mammographic fibroglandular density, bilateral breasts; R92.8 Other abnormal and inconclusive findings on diagnostic imaging of breast; Z97.8 Presence of other specified devices
CPT/HCPCS: 77063; 77067

== ENCOUNTER → 2025-02-17 09:00 | Outpatient (BNVA) | payer MEDICARE, SELFPAY | PROVIDERS: PCP Family Medicine; Visit Provider Podiatrist Foot & Ankle Surgery | DX: L60.8 Other nail disorders (principal); L60.3 Nail dystrophy | CPT/HCPCS: 99213 ==

== ENCOUNTER → 2025-03-08 14:48 | Outpatient (BNVA) | payer MEDICARE, SELFPAY | PROVIDERS: PCP Family Medicine; Visit Provider Internal Medicine Cardiovascular Disease | DX: R53.83 Other fatigue (principal); M79.602 Pain in left arm; I34.0 Nonrheumatic mitral (valve) insufficiency; I34.1 Nonrheumatic mitral (valve) prolapse; I10 Essential (primary) hypertension; E03.9 Hypothyroidism, unspecified; R06.09 Other forms of dyspnea | CPT/HCPCS: 99214 ==

== ENCOUNTER 2025-04-09 07:29 | Outpatient (CLI) | payer MEDICARE, SELFPAY ==
--- NOTE | 2025-04-09 07:45 | USCV_ITS ---
Archana Sinclair Age: 69 Gender: F : 1955 Exam Date: 04/09/2025 07:49 Ordering Phys: Ben Groves MD ([email or web address]) Technologist: CHIQUI Exam Location: [facility] [place] Indication: MVP/MR BP: 147 / 91 HR: 55 Rhythm: Sinus Technical Quality: Adequate MEASUREMENTS (Male / Female) Normal Values 2D ECHO LV Diastolic Diameter PLAX 5.1 cm 4.2 - 5.9 / 3.9 - 5.3 cm IVS Diastolic Thickness 1.3 cm 0.6 - 1.0 / 0.6 - 0.9 cm IVS Systolic Thickness 1.9 cm LVPW Diastolic Thickness 1.3 cm 0.6 - 1.0 / 0.6 - 0.9 cm LVPW Systolic Thickness 2.4 cm LVOT Diameter 2.1 cm LV Ejection Fraction 2D Teich 57.7 % LV Ejection Fraction MOD 4C 63.3 % LV Ejection Fraction MOD 2C 59.1 % LV Ejection Fraction 2C AL 58.9 % LA Diameter 4.1 cm RA Systolic Volume 4C AL 28.8 ml RA Systolic Volume 4C MOD 28.5 ml LA Sys Volume AL 48.5 cm cubed LA Sys Volume Index AL 27.6 cm cubed/m squared Aorta at Sinotubular Diameter 2.9 cm IVC Diameter 1.4 cm M-MODE LA Ao Ratio MM 1.8 AV Cusp Separation MM 1.9 cm DOPPLER AV Peak Velocity 136.0 cm/s LVOT Peak Velocity 104.0 cm/s AV Area Cont Eq vti 2.4 cm squared AV Area Cont Eq pk 2.6 cm squared MV Peak Velocity 82.0 cm/s MV Area PHT 3.4 cm squared Mitral E to A Ratio 0.7 TV Peak Velocity 242.5 cm/s TR Peak Velocity 248.0 cm/s TR Peak Gradient 24.6 mmHg TV Peak E Velocity 74.0 cm/s PV Peak Velocity 69.0 cm/s FINDINGS Left Ventricle Normal left ventricular size and systolic function, EF 55-60%. No regional wall motion abnormalities. Right Ventricle Normal in size and function Right Atrium Normal right atrial size. Left Atrium Normal left atrial size. Mitral Valve Structurally normal mitral valve. Mild mitral valve regurgitation. Aortic Valve Thickened aortic valve. No aortic valve stenosis. Mild aortic valve regurgitation. Tricuspid Valve Mild tricuspid valve regurgitation. Pulmonary artery systolic pressure is normal Pulmonic Valve Not well visualized Pericardium Normal Aorta Normal in size IVC Appears to be normal CONCLUSIONS LV systolic function is normal with EF of 55-60% Mild mitral regurgitation Mild aortic regurgitation Mild tricuspid valve regurgitation. Edwin Zazueta MD (Electronically Signed) Final Date: 18 April 2025 13:10 S
== END 2025-04-09 07:30 | disposition home or self-care (01) ==
LOC: RAD 07:32
PROVIDERS: PCP Family Medicine; Visit Provider Internal Medicine Cardiovascular Disease
DX: R06.09 Other forms of dyspnea (principal); I34.0 Nonrheumatic mitral (valve) insufficiency; I35.8 Other nonrheumatic aortic valve disorders; I35.1 Nonrheumatic aortic (valve) insufficiency; I07.1 Rheumatic tricuspid insufficiency
CPT/HCPCS: 93306

== ENCOUNTER → 2025-04-23 11:02 | Outpatient (BNVA) | payer MEDICARE, SELFPAY | PROVIDERS: PCP Family Medicine; Visit Provider Specialist | DX: M19.012 Primary osteoarthritis, left shoulder (principal) | CPT/HCPCS: 20610; J1100; J2795; J3301; J9999 ==

== ENCOUNTER 2025-05-20 14:11 | Emergency (ER) | payer MEDICARE, SELFPAY ==
[2025-05-20 14:28] VITALS: BP 161/87; PULSE 61; RESP 14; TEMP 36.8; O2SAT 99
--- NOTE | 2025-05-20 14:50 | ECG_ITS ---
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 Measurements Intervals [place] Rate: 59 P: 36 WA: 174 QRS: -6 QRSD: 95 T: 13 QT: 393 QTc: 391 Interpretive Statements SINUS BRADYCARDIA VOLTAGE CRITERIA FOR LVH [MEETS CRITERIA IN ONE OF: R(aVL), S(V1), R(V5), R(V5/V6)+S(V1)] Compared to ECG 12/02/2024 09:40:43 Sinus rhythm no longer present Electronically Signed On 05-22-2025 12:02:42 CDT by Edwin Zazueta M.D. [email or web address]
[2025-05-20 15:06] VITALS: BP 142/85; PULSE 64; O2SAT 95
--- NOTE | 2025-05-20 15:13 | W.ED.GENADLT ---
HPI - General Adult General: Chief complaint: General Medical Stated complaint: High BP Time Seen by Provider: 05/20/25 14:50 History of Present Illness: 70-year-old female presents to the emergency room with complaints of elevated blood pressure. Patient's blood pressure at home she reports was in the 200 190 range is much better here. She normally takes metoprolol is not on any other antihypertensive no recent change medication. No nausea or vomiting she had some pain in the left side of her neck briefly but no chest pain. No difficulty speech balance swallowing or vision. Associated symptoms: Deny chest pain, dyspnea or rash Related Data Home Medications ?Medication ?Instructions ?Recorded ?Confirmed magnesium 250 mg PO DAILY 08/21/19 04/23/25 acetaminophen 500 mg tablet 500 mg PO Q6H PRN Pain, Mild 07/07/20 04/23/25 (Tylenol Extra Strength) sodium chloride 0.65 % nasal spray 1 spray intranasal BID PRN 07/07/20 04/23/25 aerosol (Saline Mist) ALLERGIES montelukast 10 mg tablet 10 mg PO DAILY 03/04/23 04/23/25 budesonide-formoterol HFA 160 1 puff inhalation BID 12/02/24 04/23/25 mcg-4.5 mcg/actuation aerosol inhaler cimetidine 200 mg tablet 200 mg PO BID 12/02/24 04/23/25 fluticasone propionate 50 2 spray intranasal BID 12/02/24 04/23/25 mcg/actuation nasal spray,suspension loratadine 10 mg tablet 10 mg PO DAILY 12/02/24 04/23/25 Previous Rx's ?Medication ?Instructions ?Recorded rosuvastatin 10 mg tablet 10 mg PO DAILY #90 tabs 04/16/22 metoprolol tartrate 50 mg tablet 50 mg PO BID #60 tabs 05/02/22 gabapentin 100 mg capsule 100 mg PO TID #90 caps 05/28/22 amitriptyline 25 mg tablet 25 mg PO QDAY #90 tabs 06/19/22 meloxicam 15 mg tablet 15 mg PO DAILY #90 tabs 06/19/22 Allergies Allergy/AdvReac Type Severity Reaction Status Date / Time Penicillins Allergy Severe ALGY-Rash Verified 04/23/25 07:25 albuterol Allergy chest pain Verified 04/23/25 07:25 codeine AdvReac Severe ADR-Anxiety Verified 04/23/25 07:25 hydrocodone AdvReac Severe ADR-Vomitin Verified 04/23/25 07:25 g Review of Systems Const: Denies: fever(s) or chills Card: Denies: chest pain Resp: Denies: dyspnea GI: Denies: abdominal pain : Denies: dysuria, urinary frequency or urinary urgency Musc: Denies: neck pain or back pain Skin/Breast: Denies: rash PFSH ED PFSH: Medical History Diastolic dysfunction Chronic back pain Scoliosis Hypertension Chronic obstructive airway disease with asthma Hypothyroidism Surgical History History of total vaginal hysterectomy (06/04/17) TVH with BSO, Uterosacral ligament suspension, Anterior vaginal repair, Solyx single incision sling. Performed by Dr. Baez at [facility] [place] in [place], [place] History of oral surgery Performed [place], [place] Family History Father Hypertension Myocardial infarction Mother Hypertension Diabetes Grandmother Hypertension Colon cancer paternal CAD (coronary artery disease) Maternal Grandfather Hypertension Social History Smoking and tobacco/nicotine status: never used tobacco/nicotine Second hand smoke exposure: Yes Alcohol intake: never Substance/Drug Use: never Lives independently: Yes Household members: spouse Marital status: Current occupational status: retired Do you think of yourself as: Straight/Heterosexual Current gender identity: Female Physical Exam Const: GENERAL APPEARANCE: cooperative ORIENTATION/CONSCIOUSNESS: Yes awake, Yes oriented to person, Yes oriented to place and Yes oriented to time HENMT: COMMON NORMALS: normocephalic, atraumatic and hearing grossly normal bilaterally HEAD & SCALP: normocephalic and atraumatic Resp: COMMON NORMALS: normal respiratory effort, No retractions, No use of accessory muscles and clear to auscultation bilaterally AUSCULTATION: clear to auscultation bilaterally Cardio: COMMON NORMALS: regular rate, regular rhythm and No murmurs present (Cardio) RATE: regular rate RHYTHM: regular rhythm GI: COMMON NORMALS: Soft to palpation and No hepatosplenomegaly present AUSCULTATION: Yes normoactive bowel sounds PALPATION: Yes Soft to palpation, No Tenderness to palpation present (GI), No Guarding due to palpation present (GI) and Yes No hepatosplenomegaly present Extremity: COMMON NORMALS: normal to inspection, capillary refill normal, no clubbing, cyanosis or edema, no calf tenderness and no pedal edema Neuro: SENSORIUM/ORIENTATION: Yes oriented to person, Yes oriented to place and Yes oriented to time Skin: COMMON NORMALS: no rashes or lesions noted GENERAL SKIN EXAM: no rashes or lesions noted Course Vital Signs: Vital signs: Vital Signs Temperature 98.2 F 05/20/25 14:28 Pulse Rate 72 05/20/25 16:22 Respiratory Rate 14 05/20/25 14:28 Blood Pressure 163/79 05/20/25 16:22 Pulse Oximetry 99 05/20/25 16:22 Oxygen Delivery Me thod Room Air 05/20/25 14:28 MDM - General Adult Medical Decision Making Blood pressure normalized. Labs EKG chest x-ray unremarkable. Reviewed findings with the patient. No change in medications. Follow-up with primary care within the next week recheck if has further problems. Medical Records I reviewed the patient's medical records. Lab Data I reviewed the patient's lab results. 05/20/25 15:20 05/20/25 15:20 Radiology Impressions Chest X-Ray 05/20/25 15:39 IMPRESSION: Abnormality in the right lower lung of unknown chronicity. Right hilar or perihilar mass. In retrospect this abnormality can be seen on previous examination of 07/02/2023 and 07/03/2024 and has slowly enlarged. This may be a bronchial adenoma. They have malignant potential. Laboratory Results WBC 5.98 10^3/uL (3.29-11.43) 05/20/25 15:20 RBC 3.93 10^6/uL (3.85-5.65) 05/20/25 15:20 Hgb 12.90 g/dL (11.27-16.99) 05/20/25 15:20 Hct 37.7 % (36-47) 05/20/25 15:20 MCV 95.9 fl (85-98) 05/20/25 15:20 MCH 32.8 pg (27-33) 05/20/25 15:20 MCHC 34.2 g/dL (30-55) 05/20/25 15:20 RDW 12.9 % (12.1-15.1) 05/20/25 15:20 Plt Count 191 10^3/cmm (157-399) 05/20/25 15:20 MPV 8.6 fL (7.4-10.4) 05/20/25 15:20 Neut % (Auto) 62.5 % 05/20/25 15:20 Lymph % (Auto) 20.9 % 05/20/25 15:20 [place] % (Auto) 11.4 % 05/20/25 15:20 Eos % (Auto) 4.3 % 05/20/25 15:20 Baso % (Auto) 0.7 % 05/20/25 15:20 Neut # (Auto) 3.74 10^3/uL (1.8-7.7) 05/20/25 15:20 Lymph # (Auto) 1.3 10^3/uL (0.8-4.8) 05/20/25 15:20 [place] # (Auto) 0.7 10^3/uL (0.2-0.9) 05/20/25 15:20 Eos # (Auto) 0.3 10^3/uL (0.0-0.8) 05/20/25 15:20 Baso # (Auto) 0.0 10^3/uL (0.0-0.1) 05/20/25 15:20 Nucleated RBC % (auto) 0 % 05/20/25 15:20 Nucleated RBCs # 0.0 /100WBC 05/20/25 15:20 Sodium 135 mmol/L (136-145) L 05/20/25 15:20 Potassium 4.4 mmol/L (3.5-5.1) 05/20/25 15:20 Chloride 99 mmol/L (98-107) 05/20/25 15:20 Carbon Dioxide 24 mmol/L (22-29) 05/20/25 15:20 Anion Gap 16.4 (5-19) 05/20/25 15:20 BUN 19 mg/dL (8-23) 05/20/25 15:20 Creatinine 0.5 mg/dL (0.5-0.9) 05/20/25 15:20 GFR Calculation Not Reportable 05/20/25 15:20 Glucose 90 mg/dL (65-115) 05/20/25 15:20 Calculated Osmolality 282 mOsm/kg (285-295) L 05/20/25 15:20 Calcium 9.6 mg/dL (8.5-10.5) 05/20/25 15:20 Total Bilirubin 0.4 mg/dL (0.15-1.2) 05/20/25 15:20 AST 17 U/L (0-32) 05/20/25 15:20 ALT 18 U/L (0-33) 05/20/25 15:20 Alkaline Phosphatase 82 U/L (35-105) 05/20/25 15:20 Total Protein 6.7 g/dL (6.6-8.7) 05/20/25 15:20 Albumin 4.2 g/dL (3.5-5.2) 05/20/25 15:20 Globulin 2.5 g/dL (1.3-4.6) 05/20/25 15:20 All radiology interpretation(s) finalized by discharge EKG Data EKG 1: I personally reviewed and interpreted this EKG as follows: EKG interpretation date: 05/20/25 Computer generated interpretation: Chest X-Ray 05/20/25 15:39 IMPRESSION: Abnormality in the right lower lung of unknown chronicity. Right hilar or perihilar mass. In retrospect this abnormality can be seen on previous examination of 07/02/2023 and 07/03/2024 and has slowly enlarged. This may be a bronchial adenoma. They have malignant potential. EKG 05/20/2025 01/17/2005 sinus bradycardia rate of 59 VT interval 174 QTc [address] No acute ST changes noted. EKG compared to 12/02/2024 no significant change Discharge Plan Discharge Patient Disposition: Home Clinical Impression: Transient elevated blood pressure Condition: Stable Prescriptions: No Action acetaminophen [Tylenol Extra Strength] 500 mg tablet 500 mg PO Q6H PRN (Reason: Pain, Mild) sodium chloride [Saline Mist] 0.65 % aerosol,spray 1 spray intranasal BID PRN (Reason: ALLERGIES) magnesium 250 mg PO DAILY montelukast 10 mg tablet 10 mg PO DAILY cimetidine 200 mg tablet 200 mg PO BID Rx Instructions: administer with meals fluticasone propionate 50 mcg/actuation spray,suspension 2 spray intranasal BID loratadine 10 mg tablet 10 mg PO DAILY budesonide-formoterol 160-4.5 mcg/actuation HFA aerosol inhaler 1 puff inhalation BID meloxicam 15 mg tablet 15 mg PO DAILY Qty: 90 3RF amitriptyline 25 mg tablet 25 mg PO QDAY Qty: 90 3RF rosuvastatin 10 mg tablet 10 mg PO DAILY Qty: 90 3RF metoprolol tartrate 50 mg tablet 50 mg PO BID Qty: 60 3RF gabapentin 100 mg capsule 100 mg PO TID Qty: 90 3RF Discharge Orders: Discharge ED (Routine); Ordered 05/20/25 Ordered By: Logan Gordon Referrals: Tamy Qiunn DO [Primary Care Provider, RUBBER HEEL AND SOLE PRESS TENDER] Discharge Diet: Usual diet Discharge Activity: Resume usual activity Patient Instructions: Opioid Safety, Pain Management, Patient Portal & Nadine Instructions Activity Restrictions/Additional Instructions: Thank you for choosing [facility] for your healthcare needs today. It is very important that you follow up as instructed or that you return to the Emergency Department should you have concerns or if your condition changes or worsens in any way. Emergency department visits are focused on emergent conditions, in some cases you may require further evaluation on an outpatient basis. You were seen in the emergency room with concerns of elevated blood pressure. Blood pressure while you were here was slightly elevated but not dangerously so. Your laboratory tests EKG and chest x-ray were all normal. You be discharged home continue your current metoprolol. Avoid excessive use of Naprosyn or ibuprofen. Avoid caffeinated products or other stimulants. Follow-up with your primary care doctor within the next week to reevaluate blood pressure. (Please note that included in your discharge packet is information concerning opioid safety and pain management. This information is given to all patients were discharged from the ER regardless of their discharge diagnosis or the medicines they usually take or are prescribed.) Print Language: Kazakh Coding Level of Care Code ED Inventory Accountant for Claudia Tristan
--- OUTSIDE RECORDS SUMMARY | 2025-05-20 15:24 | XMS_ITS | Encounter Summary ---
Author Organization [facility] Address [address] [place] [address] Care Team Providers Care Private Duty Aide Name Role Phone Unavailable Primary Care Provider Unavailabl e Encounter Details Date Type Department Care Team (Latest Contact Info) Description 06/17/2000 Outpatient Historical [facility] AD[facility]ISTR[facility] Redd Lange MD NO ADDRESS ON FILE Unspecified symptom associated with female genital organs (Primary Dx); Leiomyoma of uterus, unspecified Social History Tobacco Use Types Packs/Day Years Used Date Smoking Tobacco: Never Assessed Comments Unknown Sex and Gender Information Value Date Recorded Sex Assigned at Not on file 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
--- OUTSIDE RECORDS SUMMARY | 2025-05-20 15:24 | XMS_ITS | Encounter Summary ---
Author Organization [facility] Address [address] 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
--- OUTSIDE RECORDS SUMMARY | 2025-05-20 15:24 | XMS_ITS | Clinical Summary ---
Author Organization [facility] Address [address] [place] [address] Care Team Providers Care Clip Loading Machine Feeder Name Role Phone Unavailable Primary Care Provider Unavailabl e Allergies No known active allergies Medications levothyroxine 25 mcg tabletIndicatio ns:Vitreous degeneration, bilateral,Horse shoe tear of retina, left Take 25 mcg by mouth daily dinkey operator slag. Active budesonide-form oterol (SYMBICORT) 160-4.5 mcg/actuation HFA Aerosol InhalerIndicati ons:Vitreous degeneration, bilateral,Horse shoe tear of retina, left Take 2 Puffs by inhalation 2 times daily. Active methyldopa-hydr ochlorothiazide (ALDORIL-25) 250-25 mg tabletIndicatio ns:Vitreous degeneration, bilateral,Horse shoe tear of retina, left Take 1 Tab by mouth daily. Active metoprolol (LOPRESSOR) 10 mg/mL Suspension Take by mouth. 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 Gender Identity Not on file Sexual Orientation Not on file Last Filed Vital Signs Vital Sign Reading Time Taken Comments Blood Pressure 122/80 04/26/2015 2:29 PM CDT Pulse 73 04/26/2015 2:29 PM CDT Temperature - - Respiratory Rate - - Oxygen Saturation - - Inhaled Oxygen Concentration - - Weight 71.7 kg (158 lb) 04/26/2015 2:29 PM CDT Height 162.6 cm (5' 4 ) 04/26/2015 2:29 PM CDT Body Mass Index 27.12 04/26/2015 2:29 PM CDT Plan of Treatment Health Maintenance Due Date Last Done Comments DTAP/TDAP/TD VACCINES (1 - Tdap) 1972 BREAST CANCER SCREENING 1993 COLORECTAL SCREENING 1998 Colorectal Cancer Screening 1998 FIT-DNA Q 3 years 1998 FIT/FOBT Q 1 year 1998 Flex Sig/CT Colonography Q 5 years 1998 PNEUMOCOCCAL VACCINE 50+ YEARS (1 of 1 - PCV) 04/14/20 03 ZOSTER VACCINE (1 of 2) 2003 OSTEOPOROSIS SCREENING 2018 INFLUENZA VACCINE (#1) 2025 RSV VACCINE (60+ or ) (1 - 1-dose 75+ series) 2028
--- OUTSIDE RECORDS SUMMARY | 2025-05-20 15:24 | XMS_ITS | Encounter Summary ---
Author Organization [facility] Address [address] [place] [address] Care Team Providers Care Harness Rigger Name Role Phone Unavailable Primary Care Provider Unavailabl e Encounter Details Date Type Department Care Team (Latest Contact Info) Description 03/20/2000 Outpatient Historical [facility] Guy Lunsford MD NO ADDRESS ON FILE Primary localized osteoarthrosis, lower leg (Primary Dx); Accid from overexertion Social History Tobacco Use Types Packs/Day Years Used Date Smoking Tobacco: Never Assessed Comments Unknown Sex and Gender Information Value Date Recorded Sex Assigned at Not on file 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
--- OUTSIDE RECORDS SUMMARY | 2025-05-20 15:24 | XMS_ITS | Patient Health Record ---
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 Name Role Phone Tamy Quinn DO Primary Care Provider Unavailab Luis Smith Unavailable [phone] Allergies Allergen (clinical drug ingredient) Drug/Non Drug Allergy documented on EMR Reaction Allergy Type Onset Date Status Iodine itching Drug Allergy Active codeine Codeine insomnia Drug Allergy Active hydrocodone HYDROcodone headache & vomiting Drug Allergy Active Penicillin rash Drug Allergy Active Reason For Referral Reason Eval and treat Diagnosis 1 Neck pain of over 3 months duration (M54.2) Referring Provider First Name Tamy Referring Provider Last Name Kai Referring Provider Speciality Family Med icine Referred Organization [facility] Referred Provider Luis Vergara Referred Address [address] [facility],[address] Referred Provider Specialty Intervention al Pain Medicine General Notes Leatha Jean 01/27 04:07:10 PM >Insurance is out of network, would have to be selfpay, Judy Ackerman 02/01/2025 10:47:49 AM >ATC LVMVadim Twyla A 02/08/2025 10:15:18 AM >mailed npp, scheduled pt Referral Priority Routine Medications Medication SIG (Take, Route, Frequency, Duration) Notes Start Date End Date Status Acetaminophen 500 MG Capsule 1 capsule a s needed Orally every 6 hrs Active Amitriptyline HCl 25 MG Tablet 1 tablet at bedtime Orally Once a day Active Meloxicam 15 MG Tablet 1 tablet Orally O nce a day Active Gabapentin 100 MG Capsule 1 capsule at b edtime Orally Once a day Active Social History Tobacco Use: Social History Observation Description Date Details (start date - stop date) Never Smoker NA - NA Social History Tobacco Use: Social Info Question Answer Notes Tobacco Control (Standard) Tobacco use: Nonsmoker Additional Details Category Social Info Options Details Miscellaneous: Sexually active: no Sexual abuse: no Drugs/Alcohol: Do you smoke marijuana? De nies Do you drink alcohol? No Problems Problem Type SNOMED Code ICD Code Onset Dates Problem Status W/U Status Risk Notes Problem Chronic pain syndrome (698948406) Chronic pain syndrome (G89.4) Active confirmed Problem Degeneration of cervical intervertebral disc (30740334) Degenerative disc disease, cervical (M50.30) Active confirmed Problem Cervical spondylosis (768313933) Cervical spondylosis (M47.812) Active confirmed Problem Cervical disc disorder with radiculopathy (081613705) Cervical disc disorder with radiculopathy (M50.10) Active confirmed Problem Neck pain (63342295) Neck pain of over 3 months duration (M54.2) Active confirmed Problem Abnormal gait (35801195) Abnormality of gait and mobility (R26.9) Active confirmed Vital Signs Height-cm 162.56 cm 2025 Weight-kg 67.13 kg 2025 Height 64 in 2025 Weight 148 lbs 2025 BMI 25.4 kg/m2 2025 Encounters Encounter Location Date Provider Diagnosis [facility] [address] [address] 2025 Luis Vergara Chronic pain syndrom e G89.4 ; Cervical spondylosis with radiculopathy M47.22 ; Cervical disc disorder with radiculopathy M50.10 ; Back pain M54.9 ; Abnormality of gait and mobility R26.9 ; Degenerative disc disease, cervical M50.30 ; Drug therapy continued Z79.899 and Cervical spondylosis M47.812 Assessments Encounter Date Diagnosis (ICD Code) Assessment Notes Treatment Notes Treatment Clinical Notes Section Notes 2025 Chronic pain syndrome (ICD-10 - G89.4) I had a nice visit today with the patient regarding her chronic pain issues. Based on her history, physical examination, and x-rays, which I reviewed, the worst of her symptoms appears consistent with cervical spondylosis. We discussed treatment options. It would seem reasonable to get advanced imaging of her cervical spine. She doesn't want to pay for an MRI, so we will order a CT scan instead. She is getting a corticosteroid injection with Dr. Tao. We will try to coordinate treatments with her. We will follow up in six weeks to review the imaging and proceed accordingly. 2025 Cervical spondylosis with radiculopathy (ICD-10 - M47.22) 2025 Cervical disc disorder with radiculopathy (ICD-10 - M50.10) 2025 Back pain (ICD-10 - M54.9) 2025 Abnormality of gait and mobility (ICD-10 - R26.9) 2025 Degenerative disc disease, cervical (ICD-10 - M50.30) 2025 Drug therapy continued (ICD-10 - Z79.899) 2025 Cervical spondylosis (ICD-10 - M47.812) 2025 Other I, Jasmin Ulloa, am scribing for Dr. Luis Vergara. I, Dr. Luis Vergara, personally performed the services described in this documentation, as scribed by Jasmin Ulloa, and it is both accurate and complete. Plan Of Treatment Pending Test Test Name Order Date CT C-Spine w/o Contrast incl [id number] 2025 Next Appt Details Provider Name:Luis Vergara, 05/26/2025 11:00:00 AM, [address] [place], [address], Insurance Providers Payer Name Payer Address Payer Phone Subscriber Number Group Number Insured Name Patient Relationship to Insured Coverage Start Date Coverage End Date [facility] [place] Medicare Replacement [address] [place] [address] [phone] [id number] Archana Sinclair Self - patient is the insured NOT IN [facility] Medicare Advantage HMO [address] [address] [place] [address] [id number] Archana Sinclair Self - patient is the insured Medical (General) History Medical History History ICD Code High Blood Pressure Hypoglycemia Measles/Mumps/Rubella asthma bronchitis Stomach Ulcer migraine headaches muscle/connective tissue disease Depression Arthritis constipation kidney infection Swelling of multiple joints rheumatic fever Surgical History Surgery Date(Month/Year) hysterectomy thumb cyst
[2025-05-20 15:25] LABS: Hematocrit 37.7 % (36-47); Hemoglobin 12.90 g/dL (11.27-16.99); Mean Corpuscular HGB Conc 34.2 g/dL (30-55); Mean Corpuscular Hemoglobin 32.8 pg (27-33); Mean Corpuscular Volume 95.9 fl (85-98); Nucleated Red Blood Cells % 0 %; Platelet Count 191 10^3/cmm (157-399); Red Blood Count 3.93 10^6/uL (3.85-5.65); White Blood Count 5.98 10^3/uL (3.29-11.43)
--- OUTSIDE RECORDS SUMMARY | 2025-05-20 15:25 | XMS_ITS | Encounter Summary ---
Author Organization [facility] Address [address] [place] [address] Care Team Providers Care Boring Inspector Name Role Phone Unavailable Primary Care Provider Unavailabl e Encounter Details Date Type Department Care Team (Latest Contact Info) Description 06/17/2000 Outpatient Historical [facility] Gen Spec [place] 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
--- OUTSIDE RECORDS SUMMARY | 2025-05-20 15:25 | XMS_ITS | Clinical Summary ---
Author Organization [facility] Address [address] [place]: Epic Prelude [place]T [place] [address] Care Team Providers Care Hydrology Professor Name Role Phone Unavailable Primary Care Provider Unavailabl e Allergies No known active allergies Medications methyldopa-hydr oCHLOROthiazide (ALDORIL-25) 250-25 mg tabletIndicatio ns:Horseshoe tear of retina, left,Vitreous degeneration, bilateral Take 1 Tab by mouth daily. 5 Active budesonide-form oteroL (SYMBICORT) 160-4.5 mcg/actuation HFA Aerosol InhalerIndicati ons:Horseshoe tear of retina, left,Vitreous degeneration, bilateral Take 2 Puffs by inhalation 2 times daily. 5 Active metoprolol (LOPRESSOR) 10 mg/mL Suspension Take by mouth. 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 5 Active Active Problems Problem Noted Date Diagnosed Date Horseshoe tear of retina 03/07/2015 Vitreous degeneration 03/07/2015 Arthritis Encounters Date Type Department Care Team Description 05/04/2025 External Device Data [facility] ABSTRACTION Provider, Abstract 05/04/2025 External Device Data [facility] ABSTRACTION Provider, Abstract 05/04/2025 External Device Data [facility] ABSTRACTION Provider, Abstract 04/27/2025 12:32 PM CDT - 04/27/2025 11:59 PM CDT Hospital Encounter [facility] CT Scan [place] [address] [place] [address] Luis Vergara, DO Discharge Disposition: Home or Self Care from Last 3 Months Social History Tobacco Use Types Packs/Day Years Used Date Smoking Tobacco: Never Alcohol Use Standard Drinks/Week Comments No 0 (1 standard drink = 0.6 oz pur e alcohol) Comments Unknown Sex and Gender Information Value Date Recorded Sex Assigned at Not on file 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 Gender Identity Not on file Sexual Orientation [...] Health Maintenance Due Date Last Done Comments BREAST CANCER SCREENING 1993 COLORECTAL SCREENING 1998 Colorectal Cancer Screening 1998 FIT-DNA Q 3 years 1998 FIT/FOBT Q 1 year 1998 Flex Sig/CT Colonography Q 5 years 1998 ZOSTER VACCINE (1 of 2) 2003 DTAP/TDAP/TD VACCINES (1 - Tdap) 04/12/2005 04/11/20 05 RSV VACCINE (60+ or ) (1 - Risk 60-74 years 1-dose series) 2013 OSTEOPOROSIS SCREENING 2018 INFLUENZA VACCINE (#1) 2025 06/18/2022, 2020 COVID-19 Vaccine ( season) 2025 08/02/2021, 10/20/2020, 09/22/2020 PNEUMOCOCCAL VACCINE 50+ YEARS Completed 08/24/2022 Procedures Procedure Name Priority Date/Time Associated Diagnosis Comments CT CERVICAL SPINE WO CONTRAST Routine 04/27/2025 1:09 PM CDT Cervical spondylosis from Last 3 Months Results * CT CERVICAL SPINE WO CONTRAST (04/27/2025 1:09 PM CDT) Anatomical Region Laterality Modality Spine Computed Tomogra phy 04/27/2025 12:5 1 PM CDT Impressions 04/27/2025 1:23 PM CDT IMPRESSION: 1. Advanced multilevel degenerative changes of the cervical spine as described. This is most notable for severe atlantodental arthropathy with suspicion of underlying chronic inflammatory arthropathy. 2. Please note that the C7-T1 level was not included on the current study. Narrative 04/27/2025 1:23 PM CDT EXAM: CT CERVICAL SPINE WO CONTRAST DATE/TIME OF EXAM: 04/27/2025 1:09 PM REASON FOR STUDY: See Diagnosis DIAGNOSIS: Cervical spondylosis COMPARISON: None TECHNIQUE: CT cervical spine without intravenous contrast. Coronal and sagittal reformatted images were provided. FINDINGS: Please note that the C7 vertebra is not entirely included within the [id number] of the current study. No acute fracture or subluxation is detected. Severe atlantodental arthropathy with cystic change in the anterior arch of C1 as well as within the odontoid, and surrounding synovial thickening which contributes to mild canal stenosis at this level. The appearance is suspicious for underlying chronic inflammatory arthropathy. Focally advanced C1-C2 facet arthropathy with large marginal osteophytes. Multilevel degenerative disc disease most advanced at C5-C6 where there is a prominent disc osteophyte contributing to mild canal stenosis. Multilevel advanced facet arthropathy. Interfacet fusion bilaterally at C3-C4. Multilevel foraminal stenosis most notable at the C5-C6 level. The thyroid is atrophic. No paraspinal soft tissue edema. Procedure Note Fabrice Horan MD - 04/27/2025 EXAM: CT CERVICAL SPINE WO CONTRAST DATE/TIME OF EXAM: 04/27/2025 1:09 PM REASON FOR STUDY: See Diagnosis DIAGNOSIS: Cervical spondylosis COMPARISON: None TECHNIQUE: CT cervical spine without intravenous contrast. Coronal and sagittal reformatted images were provided. FINDINGS: Please note that the C7 vertebra is not entirely included within the [id number] of the current study. No acute fracture or subluxation is detected. Severe atlantodental arthropathy with cystic change in the anterior arch of C1 as well as within the odontoid, and surrounding synovial thickening which contributes to mild canal stenosis at this level. The appearance is suspicious for underlying chronic inflammatory arthropathy. Focally advanced C1-C2 facet arthropathy with large marginal osteophytes. Multilevel degenerative disc disease most advanced at C5-C6 where there is a prominent disc osteophyte contributing to mild canal stenosis. Multilevel advanced facet arthropathy. Interfacet fusion bilaterally at C3-C4. Multilevel foraminal stenosis most notable at the C5-C6 level. The thyroid is atrophic. No paraspinal soft tissue edema. IMPRESSION: 1. Advanced multilevel degenerative changes of the cervical spine as described. This is most notable for severe atlantodental arthropathy with suspicion of underlying chronic inflammatory arthropathy. 2. Please note that the C7-T1 level was not included on the current study. us Luis Vergara DO CT ORDERABLES Final Resu lt from Last 3 Months Insurance [id number] [place] [address] BCBS MEDICARE HMO
--- NOTE | 2025-05-20 15:39 | XR_ITS ---
WS: [id number] XR chest 1V portable [id number] REASON FOR EXAM: Elevated blood pressure FINDINGS: Significant tortuosity and ectasia of the ascending and descending thoracic aorta. The heart is at the upper limits of normal in size. Calcified granulomatous disease bilaterally. Reticular interstitial and groundglass opacities in the medial right lower lung field. Chronicity unknown. Abnormality not present on most recent examination of 06/02/2024. 2 x 2 cm right hilar or perihilar mass. 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 Severe degenerative spondylosis in the thoracic spine. XR/XR chest 1V portable [id number] IMPRESSION: Abnormality in the right lower lung of unknown chronicity. Right hilar or perihilar mass. In retrospect this abnormality can be seen on pr evious examination of 07/02/2023 and 07/03/2024 and has slowly enlarged. This m ay be a bronchial adenoma. They have malignant potential.
[2025-05-20 15:43] LABS: Albumin Level 4.2 g/dL (3.5-5.2); Alkaline Phosphatase 82 U/L (35-105); Anion Gap 16.4 (5-19); Aspartate Amino Transferase 17 U/L (0-32); Blood Urea Nitrogen 19 mg/dL (8-23); Calcium 9.6 mg/dL (8.5-10.5); Carbon Dioxide 24 mmol/L (22-29); Chloride 99 mmol/L (98-107); Creatinine Clr Calc Pharmacy 58.1307; Globulin 2.5 g/dL (1.3-4.6); Glucose 90 mg/dL (65-115); Osmolality Calculated 282 mOsm/kg (285-295); Potassium 4.4 mmol/L (3.5-5.1); Sodium 135 mmol/L (136-145); Total Protein 6.7 g/dL (6.6-8.7)
[2025-05-20 15:54] LABS: Alanine Aminotransferase 18 U/L (0-33)
[2025-05-20 16:22] VITALS: BP 163/79; PULSE 72; O2SAT 99
== END 2025-05-20 16:22 | disposition home or self-care (01) ==
PROVIDERS: Emergency Provider Family Medicine; PCP Family Medicine
DX: I10 Essential (primary) hypertension (principal)
CPT/HCPCS: 36415; 71045; 80053; 85025; 93005; 99285

== ENCOUNTER 2025-06-02 08:08 | Outpatient (CLI) | payer MEDICARE, SELFPAY ==
--- NOTE | 2025-06-02 08:18 | CT_ITS ---
WS: [id number] CT chest wo con [id number] HISTORY: ABNORMAL CHEST XRAY/LUNG MASS R LOWER LOBE TECHNIQUE: Axial imaging performed through the thorax. Coronal and sagittal reformats are submitted. All CT scans at [facility] use at least one of these dose optimization techniques: automated exposure control; mA and/or kV adjustment per patient size (includes targeted exams where dose is matched to clinical indication); or iterative reconstruction. CONTRAST: None DLP: 337.80 mGy.cm COMPARISON: Chest CT 12/04/2018, chest radiograph 05/20/2025 Lungs and central airway: No pulmonary mass or nodule. There are a few granulomata which are calcified. The mass described on recent chest radiograph is obscured by the hilar structures. This mass is closely associated with the hilum including the pulmonary vein and bronchovascular structures. Pleura: Normal. No pleural effusion. Heart and pericardium: Normal size heart with no pericardial effusion. Mediastinum and sherita: Small mediastinal lymph nodes. Some of these lymph nodes are calcified. Vessels: Mild atherosclerosis aorta. No aneurysm. Normal size pulmonary artery. Chest wall and lower neck: Asymmetric soft tissue in the LEFT breast. Correlate with recent mammogram from 02/11/2025 and a prior chest CT of 12/04/2018. No progression. Upper abdomen: Small hiatal hernia. No adrenal mass. 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 Osseous structures: Moderate increase in thoracic kyphosis. Disc spaces are all narrowed. Advanced degenerative changes at the glenohumeral joints. Joint spaces are narrowed with cystic changes involve the glenoid and the humeral head. CT/CT chest wo con [id number] IMPRESSION: 1. Mass described on recent chest radiograph at the RIGHT hilum is not well ev aluated on this noncontrast CT of the chest. Overlapping soft tissue structures need to be further delineated with IV contrast. Suspect the nodule may be asso ciated with the bronchovascular structures. Recommend follow-up chest CT with I V contrast. 2. No identifiable pulmonary mass. No mediastinal or hilar adenopathy identifi ed.
== END 2025-06-02 08:09 | disposition home or self-care (01) ==
PROVIDERS: PCP Family Medicine; Visit Provider Family Medicine
DX: R91.8 Other nonspecific abnormal finding of lung field (principal); J98.4 Other disorders of lung; J84.10 Pulmonary fibrosis, unspecified; R59.0 Localized enlarged lymph nodes; I70.0 Atherosclerosis of aorta; M79.89 Other specified soft tissue disorders; K44.9 Diaphragmatic hernia without obstruction or gangrene; N28.9 Disorder of kidney and ureter, unspecified; M40.294 Other kyphosis, thoracic region; R93.7 Abnormal findings on diagnostic imaging of other parts of musculoskeletal system; M19.011 Primary osteoarthritis, right shoulder; M19.012 Primary osteoarthritis, left shoulder
CPT/HCPCS: 71250

== ENCOUNTER → 2025-06-07 08:44 | Outpatient (BNVA) | payer MEDICARE, SELFPAY | PROVIDERS: PCP Family Medicine; Referring Provider Family Medicine; Visit Provider Anesthesiology Pain Medicine | DX: M54.2 Cervicalgia (principal) | CPT/HCPCS: 99204 ==

== ENCOUNTER 2025-06-11 12:36 | Outpatient (CLI) | payer MEDICARE, SELFPAY ==
--- NOTE | 2025-06-11 12:44 | CTR_ITS ---
PROCEDURE INFORMATION: Exam: CT Chest With Contrast; Diagnostic Exam date and time: 06/11/2025 12:52 PM Age: 70 years old Clinical indication: Lung/hilar mass seen on recent chest x-ray, incompletely evaluated on recent noncontrast CT TECHNIQUE: Imaging protocol: Diagnostic computed tomography of the chest with contrast. Radiation optimization: All CT scans at this facility use at least one of these dose optimization techniques: automated exposure control; mA and/or kV adjustment per patient size (includes targeted exams where dose is matched to clinical indication); or iterative reconstruction. Contrast material: OMNI 350; Contrast volume: 100 ml; Contrast route: INTRAVENOUS (IV); COMPARISON: CT chest wo con [id number] 06/02/2025 8:38 AM RADIATION DOSE METRICS: Total DLP (mGy-cm): 308.82 FINDINGS: Lungs: Scattered calcified pulmonary nodules. No pulmonary consolidation. Subsegmental atelectasis in the right lower lobe. Pleural spaces: Unremarkable. No pneumothorax. No pleural effusion. Heart: The left atrium measures near the upper limits of normal in size. No pericardial effusion. Lymph nodes: Scattered calcified mediastinal/hilar lymph nodes. No lymphadenopathy by CT size criteria. The previously described right hilar mass is not seen on the current exam. Vasculature: No thoracic aortic aneurysm. Bones/joints: No acute fracture. Soft tissues: Unremarkable. CT/CT chest w con* [id number] IMPRESSION: The previously described right hilar mass is not seen on the current exam. This is favored to have represented a pulmonary vein which gave the appearance of the mass on the prior radiograph and noncontrast CT.
[2025-06-11] MEDS: iohexol 350 mg/mL 500 mL Btl (per mL) IV (13:05)
== END 2025-06-11 12:37 | disposition home or self-care (01) ==
LOC: RAD 12:37
PROVIDERS: PCP Family Medicine; Visit Provider Family Medicine
DX: R91.8 Other nonspecific abnormal finding of lung field (principal); J98.11 Atelectasis; R59.0 Localized enlarged lymph nodes
CPT/HCPCS: 71260

== ENCOUNTER 2025-07-06 13:07 | Outpatient (RCR) | payer MEDICARE, SELFPAY | END 2025-08-03 15:12 | disposition home or self-care (01) | LOC: SPT 13:07 | PROVIDERS: PCP Family Medicine; Visit Provider Anesthesiology Pain Medicine | DX: M54.2 Cervicalgia (principal) | CPT/HCPCS: 97110; 97161 ==

== ENCOUNTER → 2025-07-23 10:42 | Outpatient (BNVA) | payer MEDICARE, SELFPAY | PROVIDERS: PCP Family Medicine; Visit Provider Specialist | DX: M19.012 Primary osteoarthritis, left shoulder (principal); M19.011 Primary osteoarthritis, right shoulder | CPT/HCPCS: 20610; J1100; J2795; J3301; J9999 ==